=== PATIENT | male | born 1950 | race Caucasian/White ===

== ENCOUNTER 2017-08-21 17:46 | Inpatient (IN) | payer MEDICARE, OTHER ==
[~2017-08-21] VITALS: Ht 177.8 cm; Wt 79.5 kg
[~2017-08-21 17:46] MED LIST: ALBU18HF2 IH; ALBU2.5V7 NEB; ASPI-1265 PO; BENZ-38 PO; BUDE10.2 INH; CHOL10002 PO; FENO134C9; FOLI-43 PO; IPRA3AMP9 NEB; LEVO750T46 PO; LOSA25TA96 PO; METO37.5 PO; MULT-570 PO; NOR5T PO; NYST15CR30 TP; OMEP10CA4 PO; PRED10TA23 PO; SIMV10TA2 PO; UBIQ100C3 PO
[2017-08-21 18:31] LABS: BASOPHILS % (AUTO) 0.3 % (0-1); EOSINOPHILS # (AUTO) 0.2 X10'3 (0-0.9); HEMATOCRIT 46.9 % (42.0-52.0); HEMOGLOBIN 16.1 g/dl (14.0-17.9); LYMPHOCYTES # (AUTO) 1.1 X10'3 (1.1-4.8); LYMPHOCYTES % (AUTO) 18.6 % (21-51); MEAN CORPUSCULAR HEMOGLOBIN 32.5 PG (27.0-31.0); MEAN CORPUSCULAR HGB CONC 34.3 % (33.0-36.5); MEAN CORPUSCULAR VOLUME 94.6 FL (78-98); MEAN PLATELET VOLUME 8.3 FL (7.4-10.4); MONOCYTES # (AUTO) 0.6 X10'3 (0-0.9); MONOCYTES % (AUTO) 9.7 % (2-12); NEUTROPHILS % (AUTO) 68.4 % (42-75); PLATELET COUNT 242 X10'3 (140-440); RED BLOOD COUNT 4.95 X10'6 (4.70-6.10); RED CELL DISTRIBUTION WIDTH 14.2 % (11.5-14.5); WHITE BLOOD COUNT 5.8 X10'3 (4.5-11.0)
[2017-08-21] MEDS ORDERED: iohexol 350MG/ML 100ml bottle IV ONE (18:36)
[2017-08-21 18:38] LABS: INR 1.1 INR; PARTIAL THROMBOPLASTIN TIME 29 SECONDS (22-32); PROTHROMBIN TIME 10.9 SECONDS (9.0-12.0)
[2017-08-21 18:40] LABS: ALANINE AMINOTRANSFERASE 23 U/L (12-78); ALBUMIN 3.5 G/DL (3.4-5.0); ALBUMIN/GLOBULIN RATIO 1.1 (1.1-1.5); ALKALINE PHOSPHATASE 78 IU/L (46-116); ANION GAP 8 (8-16); ASPARTATE AMINO TRANSFERASE 28 U/L (10-37); BLOOD UREA NITROGEN 10 MG/DL (7-18); BUN/CREATININE RATIO 6.9 (5.4-32.0); CHLORIDE 105 MMOL/L (99-107); CREATININE 1.44 MG/DL (0.60-1.10); GLUCOSE 109 MG/DL (70-104); POTASSIUM 3.6 MMOL/L (3.5-5.1); SODIUM 141 MMOL/L (135-145); TOTAL CARBON DIOXIDE 28.5 MMOL/L (24-32); TOTAL PROTEIN 6.8 G/DL (6.4-8.2); eGFR 49 ML/MIN
[2017-08-21] MEDS ORDERED: HYDROcodone/acetaminophen 5mg/325mg tablet PO ONE (19:20)
[2017-08-21] MEDS ORDERED: mag hydrox/Alum hydrox/simeth 30ml oral suspension PO ONE (19:20)
[2017-08-21] MEDS ORDERED: ondansetron/PF 4mg/2ml inj IV PRN (21:50)
[2017-08-21] MEDS ORDERED: acetaminophen 325mg tablet PO PRN ×3 (21:50→21:55)
[2017-08-21] MEDS ORDERED: magnesium hydroxide 30ml (MOM) UD suspension PO PRN ×3 (21:50→21:55)
[2017-08-21] MEDS ORDERED: albuterol 2.5 MG/3 ML nebule NEB PRN (21:50)
[2017-08-21] MEDS ORDERED: benzonatate 100mg capsule PO PRN (21:50)
[2017-08-21] MEDS ORDERED: mag hydrox/Alum hydrox/simeth 30ml oral suspension PO PRN ×3 (21:50→21:55)
[2017-08-21] MEDS ORDERED: morphine 2 MG/ML inj. syringe IV PRN (21:55)
[2017-08-21] MEDS: normal saline 1000ml 1,000 ML IV SCH (22:21)
[2017-08-21 22:53] LABS: CLARITY,URINE CLEAR (Clear); COLOR,URINE YELLOW (Yellow); GLUCOSE, URINE NEGATIVE (Neg); KETONES,URINE NEGATIVE (Neg); LEUKOCYTE ESTERASE ,URINE NEGATIVE (Neg); NITRITES, URINE NEGATIVE (Neg); OCCULT BLOOD,URINE NEGATIVE (Neg); PH,URINE 7.5 (4.8-8.0); PROTEIN,URINE NEGATIVE (Neg)
[2017-08-21 22:54] LABS: UA COLLECTION TYPE VOIDED; URINE AMPHETAMINE SCREEN NEGATIVE (Neg); URINE BARBITUATE SCREEN NEGATIVE (Neg); URINE BENZODIAZEPINES SCREEN NEGATIVE (Neg); URINE CANNABINOID SCREEN NEGATIVE (Neg); URINE COCAINE SCREEN NEGATIVE (Neg); URINE METHADONE SCREEN NEGATIVE (Neg); URINE OPIATE SCREEN NEGATIVE (Neg); URINE PHENCYCLIDINE SCREEN NEGATIVE (Neg)
[2017-08-21 23:30] VITALS: BP 162/61
[2017-08-22 07:18] VITALS: BP 140/62
[2017-08-22] MEDS: metoprolol tartrate 25mg tablet PO SCH ×2 (08:00→19:55)
[2017-08-22] MEDS: pantoprazole 40mg Tablet.DR PO SCH (08:05)
[2017-08-22] MEDS: normal saline 1000ml 1,000 ML IV SCH ×3 (08:05→19:05)
[2017-08-22] MEDS: atorvastatin 10mg tablet PO SCH (08:06)
[2017-08-22] MEDS: amLODIPine 5mg tablet PO SCH (08:06)
[2017-08-22] MEDS: ipratropium/albuterol 3ml nebule NEB SCH ×4 (08:38→20:22)
[2017-08-22] MEDS: budesonide 0.5mg/2ml UD nebule IH SCH ×2 (08:38→20:22)
[2017-08-22] MEDS ORDERED: BUDESONIDE INH SCH (09:00)
[2017-08-22] MEDS ORDERED: [UNRECOGNIZED DRUG - OTHER] INH SCH (09:00)
[2017-08-22] MEDS ORDERED: FORMOTEROL FUMARATE INH SCH (09:00)
[2017-08-22] MEDS ORDERED: albuterol 2.5 MG/3 ML nebule NEB PRN (09:00)
[2017-08-22 11:30] VITALS: BP 132/57
[2017-08-22 19:00] VITALS: BP 138/55
[2017-08-22] MEDS ORDERED: aspirin 81mg tab.chew PO SCH (21:00)
[2017-08-22] MEDS ORDERED: losartan 25mg tablet PO SCH (21:00)
[2017-08-23] VITALS: BP 116/61
[2017-08-23] MEDS: normal saline 1000ml 1,000 ML IV SCH (05:37)
[2017-08-23] MEDS: ipratropium/albuterol 3ml nebule NEB SCH ×2 (07:00→10:52)
[2017-08-23 07:16] VITALS: BP 139/68
[2017-08-23] MEDS ORDERED: sincalide inj 1.6 MCG in normal saline 50ml IV soln 50 ML IV ONE (08:00)
[2017-08-23] MEDS: budesonide 0.5mg/2ml UD nebule IH SCH (09:00)
[2017-08-23] MEDS: atorvastatin 10mg tablet PO SCH (09:23)
[2017-08-23] MEDS: pantoprazole 40mg Tablet.DR PO SCH (09:23)
[2017-08-23] MEDS: amLODIPine 5mg tablet PO SCH (09:24)
[2017-08-23] MEDS: metoprolol tartrate 25mg tablet PO SCH (09:24)
[2017-08-23 11:00] VITALS: BP 127/59
== END 2017-08-23 13:20 | disposition home or self-care (01) | DRG 445 ==
LOC: ER 17:46 → ED HOLD 21:47 → SUR 3N 23:26
PROVIDERS: ADMIT Family Medicine; ATTEND Internal Medicine
PROC: B32T1ZZ Computerized Tomography (CT Scan) of Left Pulmonary Artery using Low Osmolar Contrast (ICD-10-PCS; principal; 2017-08-21)
PROC: B3201ZZ Computerized Tomography (CT Scan) of Thoracic Aorta using Low Osmolar Contrast (ICD-10-PCS; 2017-08-21)
PROC: B32S1ZZ Computerized Tomography (CT Scan) of Right Pulmonary Artery using Low Osmolar Contrast (ICD-10-PCS; 2017-08-21)
PROC: CF141ZZ Planar Nuclear Medicine Imaging of Gallbladder using Technetium 99m (Tc-99m) (ICD-10-PCS; 2017-08-23)
DX: K80.71 Calculus of gallbladder and bile duct without cholecystitis with obstruction (principal); N17.9 Acute kidney failure, unspecified; M48.54XA Collapsed vertebra, not elsewhere classified, thoracic region, initial encounter for fracture; R91.1 Solitary pulmonary nodule; I50.9 Heart failure, unspecified; I11.0 Hypertensive heart disease with heart failure; I71.4 Abdominal aortic aneurysm, without rupture; E78.5 Hyperlipidemia, unspecified; F32.9 Major depressive disorder, single episode, unspecified; K21.0 Gastro-esophageal reflux disease with esophagitis; I71.2 Thoracic aortic aneurysm, without rupture; J44.9 Chronic obstructive pulmonary disease, unspecified; Z79.82 Long term (current) use of aspirin; Z79.899 Other long term (current) drug therapy; Z87.01 Personal history of pneumonia (recurrent); Z82.49 Family history of ischemic heart disease and other diseases of the circulatory system
CPT/HCPCS: 36415; 71045; 71275; 74181; 76700; 78227; 80053; 80305; 81003; 83605; 83690; 83735; 84145; 84484; 85025; 85610; 85730; 87070; 94640; 94760; A9537; J2270; J2805; J7030; J7040; J7626; Q9967

== ENCOUNTER 2018-03-18 10:01 | Observation (INO) | payer MEDICARE, OTHER ==
[~2018-03-18] VITALS: Ht 177.8 cm; Wt 79.0 kg
[~2018-03-18 10:01] MED LIST changes: -BENZ-38 PO; +HYDR-3965 PO; -LEVO750T46 PO; -METO37.5 PO; +ONDA8TAB6 PO; -PRED10TA23 PO
[2018-03-18 10:51] LABS: BASOPHILS # (AUTO) 0.1 X10'3 (0-0.2); EOSINOPHILS # (AUTO) 0.2 X10'3 (0-0.9); EOSINOPHILS % (AUTO) 2.3 % (0-6); HEMATOCRIT 49.5 % (42.0-52.0); LYMPHOCYTES # (AUTO) 0.6 X10'3 (1.1-4.8); LYMPHOCYTES % (AUTO) 5.8 % (21-51); MEAN CORPUSCULAR HEMOGLOBIN 31.6 PG (27.0-31.0); MEAN CORPUSCULAR HGB CONC 32.2 % (33.0-36.5); MEAN CORPUSCULAR VOLUME 98.1 FL (78-98); MEAN PLATELET VOLUME 9.2 FL (7.4-10.4); MONOCYTES # (AUTO) 0.7 X10'3 (0-0.9); MONOCYTES % (AUTO) 6.6 % (2-12); NEUTROPHILS # (AUTO) 8.6 X10'3 (1.8-7.7); NEUTROPHILS % (AUTO) 84.3 % (42-75); PLATELET COUNT 200 X10'3 (140-440); RED BLOOD COUNT 5.05 X10'6 (4.70-6.10); RED CELL DISTRIBUTION WIDTH 13.5 % (11.5-14.5); WHITE BLOOD COUNT 10.2 X10'3 (4.5-11.0)
[2018-03-18 11:07] LABS: ALANINE AMINOTRANSFERASE 26 U/L (12-78); ALBUMIN 3.4 G/DL (3.4-5.0); ALBUMIN/GLOBULIN RATIO 0.9 (1.1-1.5); ALKALINE PHOSPHATASE 52 IU/L (46-116); ANION GAP 11 (8-16); ASPARTATE AMINO TRANSFERASE 31 U/L (10-37); BILIRUBIN,TOTAL 1.2 MG/DL (0.1-1.0); BLOOD UREA NITROGEN 33 MG/DL (7-18); BUN/CREATININE RATIO 22.6 (5.4-32.0); CALCIUM 8.8 MG/DL (8.5-10.1); CHLORIDE 101 MMOL/L (99-107); CREATININE 1.46 MG/DL (0.60-1.10); GLUCOSE 101 MG/DL (70-104); SODIUM 138 MMOL/L (135-145); TOTAL CARBON DIOXIDE 26.2 MMOL/L (24-32); eGFR 48 ML/MIN
[2018-03-18 11:08] LABS: POTASSIUM 3.7 MMOL/L (3.5-5.1)
[2018-03-18 12:20] LABS: D-DIMER 4.35 MG/L FEU (0-0.50); INR 1.2 INR; PARTIAL THROMBOPLASTIN TIME 32 SECONDS (22-32); PROTHROMBIN TIME 11.7 SECONDS (9.0-12.0)
[2018-03-18] MEDS ORDERED: iohexol 350MG/ML 100ml bottle IV ONE (12:27)
--- NOTE | 2018-03-18 13:04 | NUR ---
Note aileen in EDM - 03/18/18 at 1309 by LINDSEY SEVERAL ATTEMPTS FOR LAB DRAWS HAVE BEEN ATTEMPTED. PTS IV PATENT AND FLUID ARE INFUSING BUT UNABLE TO DRAW BLOOD FROM LINE. NEW DIRECTOR OF PARTNER MARKETING AT [facility] ATTEMPTING AT PRESENT TIME AND MD KAISER AWARE OF LAB STATUS.
[2018-03-18] MEDS ORDERED: potassium Cl 40MEQ/NS 500ml 500 ML IV PRN ×2 (13:55)
[2018-03-18] MEDS ORDERED: ondansetron/PF 4mg/2ml inj IV PRN (13:55)
[2018-03-18] MEDS ORDERED: magnesium Cl slow-release 64mg tablet PO PRN (13:55)
[2018-03-18] MEDS ORDERED: potassium Cl 20 mEq SR tablet PO PRN ×2 (13:55)
[2018-03-18] MEDS ORDERED: magnesium 4gm in 100ml NS 100 ML IV PRN (13:55)
[2018-03-18] MEDS ORDERED: ipratropium/albuterol 3ml nebule NEB ONE (14:00)
[2018-03-18] MEDS: normal saline 1000ml 1,000 ML IV SCH (14:09)
[2018-03-18 14:19] LABS: LIPASE 628 U/L (73-393)
[2018-03-18] MEDS ORDERED: carvedilol PO (14:31)
[2018-03-18 15:05] LABS: ABG BASE EXCESS 2.8 mmol/L (-2.0-3.0); ABG HCO3 26.5 mmol/L (22.0-26.0); ABG OXYGEN SATURATION 93.9 % (95-98); ABG PCO2 (T) 37.8 mmHg (35.0-48.0); ABG PH (T) 7.464 (7.350-7.450); ABG PO2 (T) 61.5 mmHg (83-108); ALLEN'S TEST Positive; FCOHb 1.4 % (0.5-1.5); FLOW 2 L/min; FMetHb 0.2 % (0.3-1.12); FO2Hb 92.4 % (94-100); TOTAL HEMOGLOBIN 15.2 G/dl (14.0-18.0)
[2018-03-18] MEDS ORDERED: ipratropium 0.5 MG/2.5ML nebule IH SCH (16:35)
[2018-03-18] MEDS: ipratropium/albuterol 3ml nebule NEB SCH ×3 (16:35→23:47)
[2018-03-18 18:00] VITALS: BP 120/60
--- NOTE | 2018-03-18 18:45 | NUR ---
Patient report given to Maureen Butt RN
--- NOTE | 2018-03-18 18:59 | NUR ---
promotional table spacer PAGER ID: [phone] MESSAGE: [id number] JACKELIN JENNINGS NEEDS MED REC DONE BY YOU. THANKS MARCELINO [phone]
--- NOTE | 2018-03-18 19:00 | NUR ---
Patient in room ORTHO 4013b. I have received report from NEHEMIAS Kc and had the opportunity to ask questions and assume patient care.
--- NOTE | 2018-03-18 19:57 | NUR ---
PAGER ID: [phone] MESSAGE: [id number] JACKELIN JENNINGS HERE FOR SOB BUT HERE 2 DAYS AGO FOR PANCREATITIS AND HE HAS PAIN STILL IN HIS BELLY. HE WAS DISCHARGED HOME WITH [employer]. CAN I GET THAT ORDERED. CALL MARCELINO AT [phone]
[2018-03-18] MEDS ORDERED: CARVEDILOL 3.125 MG PO SCH (20:00)
[2018-03-18] MEDS: methylPREDNISolone sod succ/PF 40mg inj. IV SCH (20:10)
[2018-03-18] MEDS: heparin, porcine 5000 units/ml vial SQ SCH (20:11)
[2018-03-18] MEDS: carVEDilol 3.125mg tablet PO SCH (20:11)
[2018-03-18] MEDS ORDERED: HYDROcodone/acetaminophen 5mg/325mg tablet PO PRN (20:20)
[2018-03-18] MEDS ORDERED: folic acid 1mg tablet PO SCH (21:00)
[2018-03-18] MEDS ORDERED: losartan 50mg tablet PO SCH (21:00)
[2018-03-18] MEDS ORDERED: aspirin 81mg tab.chew PO SCH (21:00)
[2018-03-18 22:00] VITALS: BP 124/62
[2018-03-19] MEDS: normal saline 1000ml 1,000 ML IV SCH ×2 (00:19→09:16)
[2018-03-19] MEDS: ipratropium/albuterol 3ml nebule NEB SCH ×3 (03:28→11:31)
[2018-03-19 06:00] VITALS: BP 127/68
--- NOTE | 2018-03-19 06:11 | NUR ---
RECEIVED REPORT FROM MARCELINO RN
--- NOTE | 2018-03-19 06:29 | NUR ---
Problems reprioritized. Patient report given, questions answered & plan of care reviewed with NEHEMIAS Quintana. Addendum: 03/19/18 at 0631 by Maureen Barger RN Gave report to NEHEMIAS Benoit.
[2018-03-19] MEDS: carVEDilol 3.125mg tablet PO SCH (07:14)
[2018-03-19] MEDS: methylPREDNISolone sod succ/PF 40mg inj. IV SCH (07:16)
[2018-03-19] MEDS: heparin, porcine 5000 units/ml vial SQ SCH (07:18)
[2018-03-19] MEDS ORDERED: pantoprazole 40mg Tablet.DR PO SCH (07:30)
[2018-03-19] MEDS ORDERED: K and/or MAG REPLACEMENT MC SCH (08:00)
[2018-03-19] MEDS ORDERED: amLODIPine 5mg tablet PO SCH (08:00)
[2018-03-19 08:23] LABS: BASOPHILS % (AUTO) 0.1 % (0-1); EOSINOPHILS % (AUTO) 0 % (0-6); HEMATOCRIT 41.7 % (42.0-52.0); HEMOGLOBIN 13.7 g/dl (14.0-17.9); LYMPHOCYTES # (AUTO) 0.5 X10'3 (1.1-4.8); LYMPHOCYTES % (AUTO) 5.9 % (21-51); MEAN CORPUSCULAR HEMOGLOBIN 31.9 PG (27.0-31.0); MEAN CORPUSCULAR HGB CONC 32.8 % (33.0-36.5); MEAN CORPUSCULAR VOLUME 97.4 FL (78-98); MEAN PLATELET VOLUME 9.2 FL (7.4-10.4); MONOCYTES # (AUTO) 0.3 X10'3 (0-0.9); MONOCYTES % (AUTO) 3.5 % (2-12); NEUTROPHILS # (AUTO) 7.2 X10'3 (1.8-7.7); NEUTROPHILS % (AUTO) 90.5 % (42-75); PLATELET COUNT 187 X10'3 (140-440); RED BLOOD COUNT 4.28 X10'6 (4.70-6.10); RED CELL DISTRIBUTION WIDTH 14.3 % (11.5-14.5); WHITE BLOOD COUNT 7.9 X10'3 (4.5-11.0)
[2018-03-19 08:37] LABS: ALBUMIN 2.7 G/DL (3.4-5.0); ANION GAP 11 (8-16); BLOOD UREA NITROGEN 25 MG/DL (7-18); BUN/CREATININE RATIO 23.6 (5.4-32.0); CALCIUM 8.5 MG/DL (8.5-10.1); CHLORIDE 102 MMOL/L (99-107); CREATININE 1.06 MG/DL (0.60-1.10); GLUCOSE 142 MG/DL (70-104); LIPASE 117 U/L (73-393); POTASSIUM 3.7 MMOL/L (3.5-5.1); SODIUM 137 MMOL/L (135-145); TOTAL CARBON DIOXIDE 24.2 MMOL/L (24-32); eGFR 70 ML/MIN
[2018-03-19 10:00] VITALS: BP 125/62
[2018-03-19] MEDS ORDERED: OMEP20TA23 PO (12:49)
[2018-03-19] MEDS ORDERED: PRED10TA23 PO (12:49)
[2018-03-19] MEDS ORDERED: LEVO500T2 PO (12:49)
--- NOTE | 2018-03-19 13:38 | NUR ---
PT D/C WITH INSTRUCTIONS, UNDERSTANDING OF INSTRUCTIONS AND WITH ALL BELONGINGS IN WHEELCHAIR ACCOMPANIED BY TO PRIVATE VEHICLE TO GO HOME AND F/U W/PCP
== END 2018-03-19 13:34 | disposition home or self-care (01) ==
LOC: ER 10:01 → ED HOLD 14:17 → ORTHO 4S 16:48
PROVIDERS: ADMIT Internal Medicine; ATTEND Internal Medicine
DX: J44.1 Chronic obstructive pulmonary disease with (acute) exacerbation (principal); K85.90 Acute pancreatitis without necrosis or infection, unspecified; I11.0 Hypertensive heart disease with heart failure; I50.9 Heart failure, unspecified; J40 Bronchitis, not specified as acute or chronic; J18.9 Pneumonia, unspecified organism; F32.9 Major depressive disorder, single episode, unspecified; K46.9 Unspecified abdominal hernia without obstruction or gangrene; E78.5 Hyperlipidemia, unspecified; Z87.891 Personal history of nicotine dependence; Z23 Encounter for immunization; Z09 Encounter for follow-up examination after completed treatment for conditions other than malignant neoplasm
CPT/HCPCS: 36415; 36600; 71045; 71275; 80048; 80053; 82803; 83690; 83735; 83880; 84484; 85018; 85025; 85379; 85610; 85730; 87070; 93005; 93970; 94640; 94760; 96372; 96374; 96376; 99285; G0378; J1644; J2920; J7030; Q9967

== ENCOUNTER 2019-01-13 15:53 | Observation (INO) | payer MEDICARE ==
[~2019-01-13] VITALS: Ht 177.8 cm; Wt 78.3 kg
[~2019-01-13 15:53] MED LIST changes: -ALBU2.5V7 NEB; -FENO134C9; +FENO134C9 PO; -HYDR-3965 PO; -IPRA3AMP9 NEB; -NYST15CR30 TP; -OMEP10CA4 PO; +OMEP20TA23 PO; -ONDA8TAB6 PO; -SIMV10TA2 PO; -UBIQ100C3 PO; +carvedilol PO
[2019-01-13 16:38] LABS: BASOPHILS # (AUTO) 0.1 X10'3 (0-0.2); EOSINOPHILS # (AUTO) 0.2 X10'3 (0-0.9); EOSINOPHILS % (AUTO) 3.3 % (0-6); HEMATOCRIT 42.1 % (42.0-52.0); HEMOGLOBIN 14.3 g/dl (14.0-17.9); LYMPHOCYTES # (AUTO) 1.1 X10'3 (1.1-4.8); LYMPHOCYTES % (AUTO) 15.9 % (21-51); MEAN CORPUSCULAR HEMOGLOBIN 29.2 PG (27.0-31.0); MEAN CORPUSCULAR HGB CONC 33.9 g/dL (33.0-36.5); MEAN CORPUSCULAR VOLUME 86.3 FL (78-98); MEAN PLATELET VOLUME 7.8 FL (7.4-10.4); MONOCYTES # (AUTO) 0.7 X10'3 (0-0.9); MONOCYTES % (AUTO) 10.2 % (2-12); NEUTROPHILS # (AUTO) 4.9 X10'3 (1.8-7.7); NEUTROPHILS % (AUTO) 69.6 % (42-75); PLATELET COUNT 333 X10'3 (140-440); RED BLOOD COUNT 4.88 X10'6 (4.70-6.10); RED CELL DISTRIBUTION WIDTH 14.3 % (11.5-14.5); WHITE BLOOD COUNT 7.1 X10'3 (4.5-11.0)
[2019-01-13 16:54] LABS: PARTIAL THROMBOPLASTIN TIME 29 SECONDS (22-32)
[2019-01-13 16:55] LABS: ALANINE AMINOTRANSFERASE 24 U/L (12-78); ALBUMIN 3.7 G/DL (3.4-5.0); ALBUMIN/GLOBULIN RATIO 0.9 (1.1-1.5); ALKALINE PHOSPHATASE 56 IU/L (46-116); ANION GAP 9 (8-16); ASPARTATE AMINO TRANSFERASE 26 U/L (10-37); BILIRUBIN,TOTAL 0.7 MG/DL (0.1-1.0); BLOOD UREA NITROGEN 16 MG/DL (7-18); BUN/CREATININE RATIO 12.4 (5.4-32.0); CALCIUM 9.4 MG/DL (8.5-10.1); CHLORIDE 103 MMOL/L (99-107); CREATININE 1.29 MG/DL (0.60-1.10); GLUCOSE 93 MG/DL (70-104); POTASSIUM 3.8 MMOL/L (3.5-5.1); SODIUM 139 MMOL/L (135-145); TOTAL CARBON DIOXIDE 27.3 MMOL/L (24-32); TOTAL PROTEIN 7.7 G/DL (6.4-8.2); eGFR 56 ML/MIN
[2019-01-13 16:59] LABS: TROPONIN I 0.26 NG/ML (0.0-0.05)
[2019-01-13] MEDS ORDERED: enoxaparin 100mg/ml syringe SUBCUT ONE (17:30)
[2019-01-13] MEDS ORDERED: HYDROcodone/acetaminophen 5mg/325mg tablet PO PRN (17:40)
[2019-01-13] MEDS ORDERED: acetaminophen 325mg tablet PO PRN ×2 (17:40)
[2019-01-13] MEDS ORDERED: magnesium Cl slow-release 64mg tablet PO PRN (17:40)
[2019-01-13] MEDS ORDERED: magnesium hydroxide 30ml (MOM) UD suspension PO PRN (17:40)
[2019-01-13] MEDS ORDERED: potassium CL 10mEq/100ml bag 100 ML IV PRN ×2 (17:40)
[2019-01-13] MEDS ORDERED: potassium Cl 20 mEq SR tablet PO PRN ×2 (17:40)
[2019-01-13] MEDS ORDERED: magnesium 2GM in 50ml NS 50 ML IV PRN (17:40)
[2019-01-13] MEDS ORDERED: ondansetron/PF 4mg/2ml inj IV PRN (17:40)
[2019-01-13] MEDS ORDERED: mag hydrox/Alum hydrox/simeth 30ml oral suspension PO PRN (17:40)
[2019-01-13] MEDS ORDERED: magnesium 4gm in 100ml NS 100 ML IV PRN (17:40)
[2019-01-13] MEDS ORDERED: CARV3.122 PO (17:52)
[2019-01-13] MEDS ORDERED: SIMV10TA98 PO (17:52)
[2019-01-13] MEDS ORDERED: FURO-149 PO (17:54)
[2019-01-13] MEDS ORDERED: OMEP40CA13 PO (17:55)
[2019-01-13] MEDS ORDERED: UBID200C37 PO (18:02)
[2019-01-13] MEDS ORDERED: CANNABIDIOL PO (18:05)
[2019-01-13] MEDS ORDERED: pneumococcal 23-VAL P-sac vacc 25 mcg/0.5ml vial IMVAC ONE (18:40)
[2019-01-13] MEDS ORDERED: furosemide 40mg tablet PO PRN (19:20)
--- NOTE | 2019-01-13 19:35 | NUR ---
Patient in room ORTHO 4015. I have received report from NEHEMIAS Weiss in ER and had the opportunity to ask questions
[2019-01-13 19:38] VITALS: BP 135/70
[2019-01-13] MEDS: carVEDilol 3.125mg tablet PO SCH (20:17)
[2019-01-13] MEDS ORDERED: folic acid 1mg tablet PO SCH (21:00)
[2019-01-13] MEDS ORDERED: losartan 25mg tablet PO SCH (21:00)
[2019-01-13] MEDS ORDERED: aspirin 81mg tab.chew PO SCH (21:00)
[2019-01-13 22:00] VITALS: BP 110/59
[2019-01-13 23:20] VITALS: BP 120/66
--- NOTE | 2019-01-14 01:28 | NUR ---
reviewed and agree with SRN assessment.
[2019-01-14 02:00] VITALS: BP 119/56
[2019-01-14 04:15] VITALS: BP 119/56
[2019-01-14 05:13] LABS: BASOPHILS % (AUTO) 0.5 % (0-1); EOSINOPHILS # (AUTO) 0.3 X10'3 (0-0.9); EOSINOPHILS % (AUTO) 4.4 % (0-6); HEMOGLOBIN 13.5 g/dl (14.0-17.9); LYMPHOCYTES # (AUTO) 1.4 X10'3 (1.1-4.8); LYMPHOCYTES % (AUTO) 21.7 % (21-51); MEAN CORPUSCULAR HEMOGLOBIN 29.3 PG (27.0-31.0); MEAN CORPUSCULAR HGB CONC 33.7 g/dL (33.0-36.5); MEAN CORPUSCULAR VOLUME 86.8 FL (78-98); MEAN PLATELET VOLUME 8.3 FL (7.4-10.4); MONOCYTES # (AUTO) 0.7 X10'3 (0-0.9); MONOCYTES % (AUTO) 11.1 % (2-12); NEUTROPHILS # (AUTO) 4.1 X10'3 (1.8-7.7); NEUTROPHILS % (AUTO) 62.3 % (42-75); PLATELET COUNT 308 X10'3 (140-440); RED CELL DISTRIBUTION WIDTH 14.4 % (11.5-14.5); WHITE BLOOD COUNT 6.6 X10'3 (4.5-11.0)
[2019-01-14 05:46] LABS: ALBUMIN 3.3 G/DL (3.4-5.0); ANION GAP 6 (8-16); BLOOD UREA NITROGEN 17 MG/DL (7-18); BUN/CREATININE RATIO 12.7 (5.4-32.0); CALCIUM 9.8 MG/DL (8.5-10.1); CHLORIDE 103 MMOL/L (99-107); CHOL/HDL RATIO 4.1 (0.00-4.99); CHOLESTEROL 144 MG/DL (0-200); CREATININE 1.34 MG/DL (0.60-1.10); GLUCOSE 92 MG/DL (70-104); HDL CHOLESTEROL 35 MG/DL (35-60); LDL CHOLESTEROL 92 MG/DL (50-100); MAGNESIUM 1.8 MG/DL (1.5-2.4); POTASSIUM 3.7 MMOL/L (3.5-5.1); SODIUM 137 MMOL/L (135-145); TOTAL CARBON DIOXIDE 27.8 MMOL/L (24-32); TRIGLYCERIDES 155 MG/DL (20-135); TROPONIN I 0.24 NG/ML (0.0-0.05); eGFR 53 ML/MIN
--- NOTE | 2019-01-14 06:27 | NUR ---
Problems reprioritized. Patient report given, questions answered & plan of care reviewed with NEHEMIAS Quintana.
[2019-01-14] MEDS ORDERED: pantoprazole 40mg Tablet.DR PO SCH (07:30)
[2019-01-14 08:00] VITALS: BP 134/63
[2019-01-14] MEDS ORDERED: enoxaparin 40mg/0.4ml syringe SQ SCH (08:00)
[2019-01-14] MEDS ORDERED: amLODIPine 5mg tablet PO SCH (08:00)
[2019-01-14] MEDS ORDERED: K and/or MAG REPLACEMENT MC SCH (08:00)
[2019-01-14] MEDS ORDERED: enoxaparin 80mg/0.8ml syringe SUBCUT SCH (08:00)
[2019-01-14] MEDS ORDERED: atorvastatin 20mg tablet PO SCH (08:00)
[2019-01-14] MEDS: carVEDilol 3.125mg tablet PO SCH (09:01)
[2019-01-14 12:30] VITALS: BP 119/57
--- NOTE | 2019-01-14 13:12 | NUR ---
Pt states that the L side of his face still feels "fuzzy" and also reports decreased sensation in L foot. MD Mcginnis aware. MD advised no further treatment necessary here, and pt will f/u out pt with erma cloth examiner hand re SOB and elevated troponins. He offered to increase the dose of asa when asked about further evaluation of the decreased sensation of L face and foot. Pt takes asa and lipitor at home.
[2019-01-14] MEDS ORDERED: CLOP75TA15 PO (13:30)
[2019-01-14 16:06] VITALS: BP 126/84
== END 2019-01-14 17:06 | disposition home or self-care (01) ==
LOC: ER 15:54 → ED HOLD 17:36 → ORTHO 4S 19:15
PROVIDERS: ADMIT Hospitalist; ATTEND Hospitalist
DX: R20.0 Anesthesia of skin (principal); R20.2 Paresthesia of skin; R51 Headache; I21.4 Non-ST elevation (NSTEMI) myocardial infarction; M79.605 Pain in left leg; M79.7 Fibromyalgia; R79.89 Other specified abnormal findings of blood chemistry; E78.5 Hyperlipidemia, unspecified; I35.1 Nonrheumatic aortic (valve) insufficiency; I11.0 Hypertensive heart disease with heart failure; I50.9 Heart failure, unspecified; I25.10 Atherosclerotic heart disease of native coronary artery without angina pectoris; J44.9 Chronic obstructive pulmonary disease, unspecified; F32.9 Major depressive disorder, single episode, unspecified; I71.4 Abdominal aortic aneurysm, without rupture; Z23 Encounter for immunization; Z87.891 Personal history of nicotine dependence; Z95.1 Presence of aortocoronary bypass graft; Z79.82 Long term (current) use of aspirin; Z79.51 Long term (current) use of inhaled steroids; Z79.899 Other long term (current) drug therapy
CPT/HCPCS: 36415; 70450; 71045; 80048; 80053; 80061; 82948; 83735; 84484; 85025; 85610; 85730; 87081; 90732; 93005; 93306; 93880; 96372; 97116; 97161; 97530; 99284; G0008; G0378; J1650

== ENCOUNTER 2019-04-14 05:34 | Day surgery (SDC) | payer MEDICARE ==
[2019-04-14] VITALS (9 sets, daily range): BP systolic 119–137; BP diastolic 54–68
[~2019-04-14] VITALS: Ht 177.8 cm; Wt 78.1 kg
[~2019-04-14 05:34] MED LIST changes: -ASPI-1265 PO; +CANNABIDIOL PO; +CARV3.122 PO; -CHOL10002 PO; +CLOP75TA15 PO; +FURO-149 PO; -LOSA25TA96 PO; -OMEP20TA23 PO; +OMEP40CA13 PO; +SIMV10TA98 PO; +UBID200C37 PO; -carvedilol PO
[2019-04-14] MEDS ORDERED: LORazepam 0.5 MG tablet PO PRN (06:00)
[2019-04-14] MEDS ORDERED: normal saline 1,000 ML IV SCH (06:00)
[2019-04-14] MEDS ORDERED: diphenhydrAMINE 25mg capsule PO PRN (06:00)
[2019-04-14] MEDS ORDERED: midazolam 2 mg/2 ml injection ONE (06:49)
[2019-04-14] MEDS ORDERED: fentaNYL/PF 50MCG/1 ML 2ML syringe ONE (06:50)
[2019-04-14] MEDS ORDERED: LIDOcaine 1% (10mg/ml)w/preservative injection 20ml MDV ONE (06:50)
[2019-04-14] MEDS ORDERED: iohexol 350MG/ML 100ml bottle IV ONE (06:50)
[2019-04-14] MEDS ORDERED: LOSA25TA96 PO (06:59)
[2019-04-14] MEDS ORDERED: CLOP75TA15 PO ×2 (06:59→07:00)
[2019-04-14] MEDS ORDERED: iohexol 350 MG/ML 50ML vial IV ONE (07:31)
[2019-04-14] MEDS ORDERED: HYDROcodone/acetaminophen 5mg/325mg tablet PO PRN (08:20)
[2019-04-14] MEDS ORDERED: ondansetron/PF 4mg/2ml inj IV PRN (08:20)
[2019-04-14] MEDS ORDERED: acetaminophen 325mg tablet PO PRN (08:25)
[2019-04-14] MEDS ORDERED: HYDROcodone/acetaminophen 10/325mg tab PO PRN (08:25)
[2019-04-14] MEDS ORDERED: OXAZEpam 15mg capsule PO PRN (08:25)
[2019-04-14] MEDS ORDERED: proCHLORperazine 10 MG/2 ml inj IV PRN (08:25)
[2019-05-11] MEDS ORDERED: FLO44IN IH (13:13)
[2019-05-11] MEDS ORDERED: ASPI-1265 PO (13:13)
== END 2019-04-14 10:50 | disposition home or self-care (01) ==
LOC: SSTAY O 05:34
PROVIDERS: ATTEND Internal Medicine Interventional Cardiology
DX: I35.1 Nonrheumatic aortic (valve) insufficiency (principal); I25.10 Atherosclerotic heart disease of native coronary artery without angina pectoris; I13.0 Hypertensive heart and chronic kidney disease with heart failure and stage 1 through stage 4 chronic kidney disease, or unspecified chronic kidney disease; I50.9 Heart failure, unspecified; J44.9 Chronic obstructive pulmonary disease, unspecified; I25.2 Old myocardial infarction; N18.9 Chronic kidney disease, unspecified; Z86.73 Personal history of transient ischemic attack (TIA), and cerebral infarction without residual deficits; Z79.899 Other long term (current) drug therapy
CPT/HCPCS: 93005; 93458; 93567; C1769; J2001; J2250; J3010; J7030; Q0163; Q9967; 93454; 99152; 99153; A4620; A6258

== ENCOUNTER 2023-01-24 21:30 | Inpatient (IN) | payer OTHER, MEDICARE ==
[~2023-01-24] VITALS: Ht 172.7 cm; Wt 65.8 kg
[~2023-01-24 21:30] MED LIST changes: -ALBU18HF2 IH; +ALBU8.5H17 IH; +AMLO5TAB16 PO; +AMYL1CAP57 PO; +APIX5TAB3 PO; +ATOR40TA72 PO; -BUDE10.2 INH; -CANNABIDIOL PO; -CARV3.122 PO; -CLOP75TA15 PO; +DIPH-629 PO; +FENO134C21 PO; -FENO134C9 PO; +FLO110IN PO; -FOLI-43 PO; +FOLI0.4T6 PO; -FURO-149 PO; +FURO40TA4 PO; +MAGN250T29 PO; +MULT-227 PO; -MULT-570 PO; -NOR5T PO; +OLME20TA23 PO; -OMEP40CA13 PO; +OMEP40CA21 PO; +POTA-205 PO; +SERT-432 PO; -SIMV10TA98 PO; +UBID200C18 PO; -UBID200C37 PO
[2023-01-24 22:57] LABS: BASOPHILS % (AUTO) 0.3 % (0-1); EOSINOPHILS % (AUTO) 0.3 % (0-6); HEMATOCRIT 47.8 % (42.0-52.0); HEMOGLOBIN 15.9 g/dl (14.0-17.9); LYMPHOCYTES # (AUTO) 0.7 X10'3 (1.1-4.8); LYMPHOCYTES % (AUTO) 6.9 % (21-51); MEAN CORPUSCULAR HGB CONC 33.2 g/dL (33.0-36.5); MEAN CORPUSCULAR VOLUME 99.4 FL (78-98); MEAN PLATELET VOLUME 9.2 FL (7.4-10.4); MONOCYTES # (AUTO) 0.6 X10'3 (0-0.9); MONOCYTES % (AUTO) 6.3 % (2-12); NEUTROPHILS # (AUTO) 8.4 X10'3 (1.8-7.7); NEUTROPHILS % (AUTO) 86.2 % (42-75); PLATELET COUNT 208 X10'3 (140-440); RED BLOOD COUNT 4.81 X10'6 (4.70-6.10); RED CELL DISTRIBUTION WIDTH 13.9 % (11.5-14.5); WHITE BLOOD COUNT 9.7 X10'3 (4.5-11.0)
[2023-01-24 23:33] LABS: APTT 28 SECONDS (22-32)
[2023-01-24 23:36] LABS: ALANINE AMINOTRANSFERASE 43 U/L (12-78); ALBUMIN 2.8 G/DL (3.4-5.0); ALBUMIN/GLOBULIN RATIO 0.9 (1.1-1.5); ALKALINE PHOSPHATASE 122 IU/L (46-116); ANION GAP 15 (8-16); ASPARTATE AMINO TRANSFERASE 82 U/L (10-37); BILIRUBIN,TOTAL 0.8 MG/DL (0.1-1.0); BLOOD UREA NITROGEN 9 MG/DL (7-18); BUN/CREATININE RATIO 9.7 (10.0-20.0); CALCIUM 8.2 MG/DL (8.5-10.1); CHLORIDE 99 MMOL/L (99-107); CREATININE 0.93 MG/DL (0.60-1.10); GLUCOSE 99 MG/DL (70-104); MAGNESIUM 1.3 MG/DL (1.5-2.4); SODIUM 136 MMOL/L (135-145); TOTAL PROTEIN 5.9 G/DL (6.4-8.2); eCRCL 70 ML/MIN; eGFR 80 ML/MIN
[2023-01-25] VITALS (9 sets, daily range): BP systolic 97–138; BP diastolic 75–81; PULSE 74–80; RESP 14–24; TEMP 97.4–98.1; O2SAT 96–98
[2023-01-25] MEDS ORDERED: dextrose 50%-water 50ml dispensing syringe IV PRN (00:20)
[2023-01-25] MEDS ORDERED: haloperidol lactate 5mg/ml inj IM PRN (00:20)
[2023-01-25] MEDS ORDERED: potassium Cl 20 mEq SR tablet PO PRN (00:20)
[2023-01-25] MEDS ORDERED: acetaminophen 325mg tablet PO PRN ×2 (00:20)
[2023-01-25] MEDS ORDERED: haloperidol 5mg tablet PO PRN (00:20)
[2023-01-25] MEDS ORDERED: LORazepam 1 MG tablet PO PRN (00:20)
[2023-01-25] MEDS ORDERED: magnesium 2GM in 50ml NS 50 ML IV PRN (00:20)
[2023-01-25] MEDS ORDERED: diphenhydrAMINE 25mg capsule PO PRN (00:20)
[2023-01-25] MEDS ORDERED: magnesium hydroxide 30ml (MOM) UD suspension PO PRN (00:20)
[2023-01-25] MEDS ORDERED: magnesium 4gm in 100ml NS 100 ML IV PRN (00:20)
[2023-01-25] MEDS ORDERED: mag hydrox/Alum hydrox/simeth 30ml oral suspension PO PRN (00:20)
[2023-01-25] MEDS ORDERED: ondansetron 4mg rapidly disintigrating tab PO PRN (00:20)
[2023-01-25] MEDS ORDERED: LORazepam 2 mg/ml vial IV PRN (00:20)
[2023-01-25] MEDS ORDERED: HYDROcodone/acetaminophen 5mg/325mg tablet PO PRN (00:20)
[2023-01-25] MEDS ORDERED: ondansetron/PF 4mg/2ml inj IV PRN (00:20)
[2023-01-25] MEDS ORDERED: potassium Cl 40MEQ/1/2NS 520ml 520 ML IV PRN (00:20)
[2023-01-25] MEDS ORDERED: morphine 2 MG/ML inj. syringe IV PRN ×2 (00:20)
[2023-01-25] MEDS ORDERED: magnesium Cl slow-release 64mg tablet PO PRN (00:20)
[2023-01-25] MEDS ORDERED: diphenhydrAMINE 50 mg/ml inj IV PRN (00:20)
[2023-01-25] MEDS ORDERED: acetaminophen 650mg rectal suppository RC PRN (00:20)
[2023-01-25] MEDS ORDERED: HYDROmorphone inj. 0.5 MG/0.5 ML DISP.SYRIN IV PRN (00:20)
[2023-01-25] MEDS ORDERED: bisacodyl 10mg suppository rectal RC PRN (00:20)
[2023-01-25 01:04] LABS: HEMOGLOBIN A1C 5.6 % (4.5-6.2)
[2023-01-25 01:10] LABS: D-DIMER 3.73 MG/L FEU (0-0.50); LIPASE 30 U/L (16-77); PHOSPHORUS 2.3 MG/DL (2.3-4.5); PRO BRAIN NATRIURETIC PEPTIDE 457 PG/ML (0-125)
[2023-01-25] MEDS: HYDROcodone/acetaminophen 10/325mg tab PO PRN ×3 (01:28→16:28)
[2023-01-25] MEDS: potassium cl 20mEq in 1/2 NS 1,000 ML IV SCH ×3 (01:29→19:56)
--- NOTE | 2023-01-25 02:33 | NUR ---
ULTRASOUND PAGED AT [phone]
[2023-01-25 03:25] LABS: MAGNESIUM 1.3 MG/DL (1.5-2.4); POTASSIUM 3.2 MMOL/L (3.5-5.1)
[2023-01-25 03:48] LABS: ETHANOL < 10 MG/DL (<10)
--- NOTE | 2023-01-25 04:30 | NUR ---
RECEIVED PT FROM ER VIA GRACIE FOLLOWING VERBAL REPORT
--- NOTE | 2023-01-25 07:42 | NUR ---
Problems reprioritized. Patient report given, questions answered & plan of care reviewed with CARLOZ.
[2023-01-25] MEDS: potassium Cl 20 mEq SR tablet PO PRN ×2 (08:41→19:52)
[2023-01-25] MEDS: docusate sod 100mg capsule PO SCH ×2 (08:42→19:52)
[2023-01-25] MEDS: K and/or MAG REPLACEMENT MC SCH ×2 (08:48→19:59)
[2023-01-25] MEDS: thiamine 100mg/ml 2ml inj. IV SCH ×3 (09:52→20:03)
[2023-01-25] MEDS: folic acid 1mg/0.2ml inj IV SCH (09:57)
[2023-01-25] MEDS ORDERED: diphenoxylate/atropine tablet (Lomotil) PO PRN (15:40)
[2023-01-25] MEDS: LIPASE/PROTEASE/AMYLASE 10,500 units CAPSULE.DR PO SCH (17:00)
[2023-01-25] MEDS: potassium chloride 10mEq ER tablet PO SCH (19:52)
[2023-01-25] MEDS: magnesium oxide 400mg tablet PO SCH (19:53)
[2023-01-25] MEDS: apixaban 5mg tablet PO SCH (19:59)
[2023-01-25] MEDS: atorvastatin 20mg tablet PO SCH (20:02)
[2023-01-25] MEDS: amLODIPine 5mg tablet PO SCH (20:03)
[2023-01-25] MEDS: budesonide 0.5mg/2ml UD nebule IH SCH (21:40)
[2023-01-26] VITALS (27 sets, daily range): BP systolic 68–145; BP diastolic 39–78; PULSE 70–88; RESP 12–23; TEMP 96.8–98.2; O2SAT 94–100
[2023-01-26] MEDS: HYDROcodone/acetaminophen 10/325mg tab PO PRN ×5 (03:03→23:48)
[2023-01-26] MEDS: potassium cl 20mEq in 1/2 NS 1,000 ML IV SCH ×3 (05:25→19:12)
--- NOTE | 2023-01-26 06:31 | NUR ---
Patient in room ORTHO 4020. I have received report from Avelina arteaga RN and had the opportunity to ask questions and assume patient care.
--- NOTE | 2023-01-26 06:50 | NUR ---
Report given to Marlyn DEL CID. Pt resting comfortably in bed. He is NPO at this time incase of cardiac clearance or surgery.
[2023-01-26] MEDS: LIPASE/PROTEASE/AMYLASE 10,500 units CAPSULE.DR PO SCH ×3 (07:00→17:00)
[2023-01-26 07:31] LABS: BASOPHILS % (AUTO) 0.7 % (0-1); EOSINOPHILS # (AUTO) 0.3 X10'3 (0-0.9); EOSINOPHILS % (AUTO) 4.2 % (0-6); HEMATOCRIT 36.5 % (42.0-52.0); HEMOGLOBIN 12.3 g/dl (14.0-17.9); LYMPHOCYTES # (AUTO) 0.9 X10'3 (1.1-4.8); MEAN CORPUSCULAR HEMOGLOBIN 33.3 PG (27.0-31.0); MEAN CORPUSCULAR HGB CONC 33.7 g/dL (33.0-36.5); MEAN CORPUSCULAR VOLUME 98.9 FL (78-98); MEAN PLATELET VOLUME 9.1 FL (7.4-10.4); MONOCYTES # (AUTO) 0.8 X10'3 (0-0.9); MONOCYTES % (AUTO) 11.5 % (2-12); NEUTROPHILS # (AUTO) 4.6 X10'3 (1.8-7.7); NEUTROPHILS % (AUTO) 69.6 % (42-75); PLATELET COUNT 160 X10'3 (140-440); RED BLOOD COUNT 3.69 X10'6 (4.70-6.10); RED CELL DISTRIBUTION WIDTH 13.3 % (11.5-14.5); WHITE BLOOD COUNT 6.6 X10'3 (4.5-11.0)
[2023-01-26] MEDS: thiamine 100mg/ml 2ml inj. IV SCH ×3 (07:52→20:33)
[2023-01-26] MEDS: folic acid 1mg/0.2ml inj IV SCH (07:53)
[2023-01-26 07:59] LABS: ALANINE AMINOTRANSFERASE 32 U/L (12-78); ALBUMIN 2.6 G/DL (3.4-5.0); ALBUMIN/GLOBULIN RATIO 0.9 (1.1-1.5); ALKALINE PHOSPHATASE 119 IU/L (46-116); ANION GAP 7 (8-16); ASPARTATE AMINO TRANSFERASE 46 U/L (10-37); BILIRUBIN,TOTAL 1.3 MG/DL (0.1-1.0); BLOOD UREA NITROGEN 13 MG/DL (7-18); BUN/CREATININE RATIO 11.6 (10.0-20.0); CHLORIDE 101 MMOL/L (99-107); CHOL/HDL RATIO 1.9 (0.00-4.99); CHOLESTEROL 120 MG/DL (0-200); CREATININE 1.12 MG/DL (0.60-1.10); GLUCOSE 92 MG/DL (70-104); HDL CHOLESTEROL 62 MG/DL (35-60); LDL CHOLESTEROL 41 MG/DL (50-100); MAGNESIUM 1.3 MG/DL (1.5-2.4); POTASSIUM 4.5 MMOL/L (3.5-5.1); SODIUM 132 MMOL/L (135-145); TOTAL CARBON DIOXIDE 24.2 MMOL/L (24-32); TOTAL PROTEIN 5.6 G/DL (6.4-8.2); TRIGLYCERIDES 149 MG/DL (20-135); eCRCL 59 ML/MIN; eGFR 65 ML/MIN
[2023-01-26] MEDS: K and/or MAG REPLACEMENT MC SCH ×2 (08:00→20:00)
[2023-01-26] MEDS ORDERED: folic acid 0.4mg tablet PO SCH (08:00)
[2023-01-26] MEDS: docusate sod 100mg capsule PO SCH ×2 (08:00→20:38)
[2023-01-26] MEDS ORDERED: non-formulary drug (Ubidecarenone (Co Q-10) 1 CAP) PO SCH (08:00)
[2023-01-26] MEDS: pantoprazole 40mg Tablet.DR PO SCH (08:26)
[2023-01-26] MEDS: losartan 50mg tablet PO SCH (08:29)
[2023-01-26] MEDS: furosemide 40mg tablet PO SCH (08:29)
[2023-01-26] MEDS: potassium chloride 10mEq ER tablet PO SCH ×2 (08:29→20:38)
[2023-01-26] MEDS: apixaban 5mg tablet PO SCH ×2 (08:29→20:00)
[2023-01-26] MEDS: magnesium oxide 400mg tablet PO SCH ×2 (08:29→20:37)
[2023-01-26] MEDS: fenofibrate 145mg tablet PO SCH (08:30)
[2023-01-26] MEDS: multivitamins, therapeutics tablet PO SCH (08:30)
[2023-01-26] MEDS: sertraline 25mg tablet PO SCH (08:30)
[2023-01-26] MEDS: budesonide 0.5mg/2ml UD nebule IH SCH ×2 (08:47→21:01)
[2023-01-26] MEDS ORDERED: aminophylline 250mg/10ml inj. IV PRN (08:50)
[2023-01-26] MEDS ORDERED: nitroGLYCERIN 0.4mg SUBLingual tab SL PRN (08:50)
[2023-01-26] MEDS ORDERED: regadenoson 0.4mg/5ml syringe IV PRN (08:50)
[2023-01-26] MEDS ORDERED: metoprolol tartrate 1mg/ml inj IV PRN (08:50)
[2023-01-26] MEDS ORDERED: iohexol 350MG/ML 100ml bottle IV ONE (10:30)
--- NOTE | 2023-01-26 10:56 | NUR ---
Received order for consult. Tried to meet with patient but patient was with family.
--- NOTE | 2023-01-26 18:40 | NUR ---
Problems reprioritized. Patient report given, questions answered & plan of care reviewed with NEHEMIAS Meza.
[2023-01-26] MEDS: atorvastatin 20mg tablet PO SCH (20:37)
[2023-01-26] MEDS: amLODIPine 5mg tablet PO SCH ×2 (20:38→20:46)
[2023-01-27] VITALS (10 sets, daily range): BP systolic 90–112; BP diastolic 64–75; PULSE 70–81; RESP 14–18; TEMP 97.2–97.9; O2SAT 96–97
[2023-01-27] MEDS: HYDROcodone/acetaminophen 10/325mg tab PO PRN ×3 (03:51→16:25)
[2023-01-27] MEDS: potassium cl 20mEq in 1/2 NS 1,000 ML IV SCH ×3 (04:31→23:30)
--- NOTE | 2023-01-27 06:31 | NUR ---
Problems reprioritized. Patient report given, questions answered & plan of care reviewed with nallely Almodovar.
--- NOTE | 2023-01-27 06:40 | NUR ---
i noticed that there is norco administer entry on eMAR @4902 by student. i belived the student clicked administer button by mistake. there is no history of taking norco out of omni and pt doesn't believe he received norco around that time.
[2023-01-27 06:56] LABS: BASOPHILS % (AUTO) 0.4 % (0-1); EOSINOPHILS # (AUTO) 0.2 X10'3 (0-0.9); EOSINOPHILS % (AUTO) 4.2 % (0-6); HEMATOCRIT 32.6 % (42.0-52.0); HEMOGLOBIN 10.9 g/dl (14.0-17.9); LYMPHOCYTES # (AUTO) 0.6 X10'3 (1.1-4.8); LYMPHOCYTES % (AUTO) 11.8 % (21-51); MEAN CORPUSCULAR HEMOGLOBIN 33.4 PG (27.0-31.0); MEAN CORPUSCULAR HGB CONC 33.6 g/dL (33.0-36.5); MEAN CORPUSCULAR VOLUME 99.4 FL (78-98); MONOCYTES # (AUTO) 0.6 X10'3 (0-0.9); MONOCYTES % (AUTO) 10.8 % (2-12); NEUTROPHILS % (AUTO) 72.8 % (42-75); PLATELET COUNT 129 X10'3 (140-440); RED BLOOD COUNT 3.28 X10'6 (4.70-6.10); RED CELL DISTRIBUTION WIDTH 13.2 % (11.5-14.5); WHITE BLOOD COUNT 5.4 X10'3 (4.5-11.0)
[2023-01-27 07:13] LABS: ALANINE AMINOTRANSFERASE 25 U/L (12-78); ALBUMIN 2.2 G/DL (3.4-5.0); ALBUMIN/GLOBULIN RATIO 0.8 (1.1-1.5); ALKALINE PHOSPHATASE 118 IU/L (46-116); ANION GAP 6 (8-16); ASPARTATE AMINO TRANSFERASE 38 U/L (10-37); BILIRUBIN,TOTAL 0.8 MG/DL (0.1-1.0); BLOOD UREA NITROGEN 10 MG/DL (7-18); BUN/CREATININE RATIO 10.1 (10.0-20.0); CALCIUM 8.1 MG/DL (8.5-10.1); CHLORIDE 102 MMOL/L (99-107); CREATININE 0.99 MG/DL (0.60-1.10); GLUCOSE 95 MG/DL (70-104); MAGNESIUM 1.5 MG/DL (1.5-2.4); POTASSIUM 4.4 MMOL/L (3.5-5.1); SODIUM 134 MMOL/L (135-145); TOTAL CARBON DIOXIDE 26.1 MMOL/L (24-32); TOTAL PROTEIN 4.8 G/DL (6.4-8.2); eCRCL 64 ML/MIN; eGFR 75 ML/MIN
[2023-01-27] MEDS: budesonide 0.5mg/2ml UD nebule IH SCH ×2 (07:55→20:40)
[2023-01-27] MEDS: K and/or MAG REPLACEMENT MC SCH ×2 (08:00→20:00)
[2023-01-27] MEDS: apixaban 5mg tablet PO SCH (08:00)
--- NOTE | 2023-01-27 09:01 | NUR ---
Spoke to Yara Nelson regarding if Dr Mcknight was planning on taking patient to surgery. Per Yara she is not sure at this time and is aware patient did have Echo and Cardiac stress test yesterday. Per Yara ok to feed patient hold Eliquis at this time and she will speak to Dr Mcknight and get back to me.
[2023-01-27] MEDS: thiamine 100mg/ml 2ml inj. IV SCH ×3 (09:14→21:16)
[2023-01-27] MEDS: folic acid 1mg/0.2ml inj IV SCH (09:14)
[2023-01-27] MEDS: docusate sod 100mg capsule PO SCH ×2 (09:15→21:17)
[2023-01-27] MEDS: pantoprazole 40mg Tablet.DR PO SCH (09:15)
[2023-01-27] MEDS: losartan 50mg tablet PO SCH (09:16)
[2023-01-27] MEDS: multivitamins, therapeutics tablet PO SCH (09:17)
[2023-01-27] MEDS: furosemide 40mg tablet PO SCH (09:17)
[2023-01-27] MEDS: magnesium oxide 400mg tablet PO SCH ×2 (09:17→21:17)
[2023-01-27] MEDS: sertraline 25mg tablet PO SCH (09:18)
[2023-01-27] MEDS: potassium chloride 10mEq ER tablet PO SCH ×2 (09:18→21:16)
[2023-01-27] MEDS: fenofibrate 145mg tablet PO SCH (09:18)
[2023-01-27] MEDS: LIPASE/PROTEASE/AMYLASE 10,500 units CAPSULE.DR PO SCH ×3 (09:27→17:47)
[2023-01-27] MEDS: JUVEN Shake w/Arg/Glut/Ca2+Bmb (Juven 19.3gm) pkt 240ml PO SCH (18:00)
[2023-01-27] MEDS: atorvastatin 20mg tablet PO SCH (21:16)
[2023-01-27] MEDS: amLODIPine 5mg tablet PO SCH (21:17)
[2023-01-28] VITALS (9 sets, daily range): BP systolic 104–138; BP diastolic 37–80; PULSE 50–95; RESP 14–20; TEMP 96.6–98.2; O2SAT 94–98
[2023-01-28] MEDS: HYDROcodone/acetaminophen 10/325mg tab PO PRN (03:46)
--- NOTE | 2023-01-28 06:15 | NUR ---
Patient in room ORTHO 4020. I have received report from Adamaris DEL CID and had the opportunity to ask questions and assume patient care.
--- NOTE | 2023-01-28 06:48 | NUR ---
Report to Michelle.
[2023-01-28] MEDS: K and/or MAG REPLACEMENT MC SCH ×2 (08:00→20:00)
[2023-01-28] MEDS: budesonide 0.5mg/2ml UD nebule IH SCH ×2 (08:27→20:48)
[2023-01-28] MEDS: pantoprazole 40mg Tablet.DR PO SCH (08:47)
[2023-01-28] MEDS: docusate sod 100mg capsule PO SCH ×2 (08:47→20:00)
[2023-01-28] MEDS: sertraline 25mg tablet PO SCH (08:48)
[2023-01-28] MEDS: magnesium oxide 400mg tablet PO SCH ×2 (08:48→20:38)
[2023-01-28] MEDS: furosemide 40mg tablet PO SCH (08:48)
[2023-01-28] MEDS: fenofibrate 145mg tablet PO SCH (08:48)
[2023-01-28] MEDS: losartan 50mg tablet PO SCH (08:48)
[2023-01-28] MEDS: potassium chloride 10mEq ER tablet PO SCH ×2 (08:48→20:39)
[2023-01-28] MEDS: LIPASE/PROTEASE/AMYLASE 10,500 units CAPSULE.DR PO SCH ×3 (08:48→23:16)
[2023-01-28] MEDS: multivitamins, therapeutics tablet PO SCH (08:48)
[2023-01-28] MEDS: JUVEN Shake w/Arg/Glut/Ca2+Bmb (Juven 19.3gm) pkt 240ml PO SCH ×3 (08:54→23:14)
[2023-01-28 09:30] LABS: BASOPHILS % (AUTO) 0.2 % (0-1); EOSINOPHILS # (AUTO) 0.2 X10'3 (0-0.9); EOSINOPHILS % (AUTO) 3.8 % (0-6); HEMATOCRIT 31.1 % (42.0-52.0); HEMOGLOBIN 10.6 g/dl (14.0-17.9); LYMPHOCYTES # (AUTO) 0.6 X10'3 (1.1-4.8); LYMPHOCYTES % (AUTO) 12.3 % (21-51); MEAN CORPUSCULAR HEMOGLOBIN 33.8 PG (27.0-31.0); MEAN CORPUSCULAR VOLUME 99.4 FL (78-98); MEAN PLATELET VOLUME 9.2 FL (7.4-10.4); MONOCYTES # (AUTO) 0.6 X10'3 (0-0.9); MONOCYTES % (AUTO) 12.5 % (2-12); NEUTROPHILS # (AUTO) 3.5 X10'3 (1.8-7.7); NEUTROPHILS % (AUTO) 71.2 % (42-75); PLATELET COUNT 138 X10'3 (140-440); RED BLOOD COUNT 3.13 X10'6 (4.70-6.10); RED CELL DISTRIBUTION WIDTH 13.4 % (11.5-14.5); WHITE BLOOD COUNT 4.9 X10'3 (4.5-11.0)
[2023-01-28 09:37] LABS: APTT 29 SECONDS (22-32); D-DIMER 1.46 MG/L FEU (0-0.50); PROTHROMBIN TIME 10.5 SECONDS (9.0-12.0)
[2023-01-28 10:03] LABS: ALANINE AMINOTRANSFERASE 27 U/L (12-78); ALBUMIN 2.3 G/DL (3.4-5.0); ALBUMIN/GLOBULIN RATIO 0.9 (1.1-1.5); ALKALINE PHOSPHATASE 125 IU/L (46-116); ANION GAP 6 (8-16); ASPARTATE AMINO TRANSFERASE 35 U/L (10-37); BILIRUBIN,TOTAL 0.8 MG/DL (0.1-1.0); BLOOD UREA NITROGEN 9 MG/DL (7-18); BUN/CREATININE RATIO 9.4 (10.0-20.0); CALCIUM 8.4 MG/DL (8.5-10.1); CHLORIDE 101 MMOL/L (99-107); CREATININE 0.96 MG/DL (0.60-1.10); GLUCOSE 84 MG/DL (70-104); MAGNESIUM 1.5 MG/DL (1.5-2.4); POTASSIUM 4.6 MMOL/L (3.5-5.1); SODIUM 134 MMOL/L (135-145); TOTAL CARBON DIOXIDE 26.6 MMOL/L (24-32); eCRCL 66 ML/MIN; eGFR 77 ML/MIN
[2023-01-28] MEDS: cyclobenzaprine 10mg tablet PO SCH ×2 (16:00→23:06)
--- NOTE | 2023-01-28 18:08 | NUR ---
I have reviewed and agree with all interventions, assessments performed and documented by elvis RICHTER .
--- NOTE | 2023-01-28 18:19 | NUR ---
Problems reprioritized. Patient report given, questions answered & plan of care reviewed with Rojelio RICHTER.
[2023-01-28] MEDS: potassium cl 20mEq in 1/2 NS 1,000 ML IV SCH (19:01)
--- NOTE | 2023-01-28 19:15 | NUR ---
noted that pt missed Flexeril dose at 1600, but has another scheduled dose at 0000. Call to pharmacy; per pharmacy, hold 1600 dose, as it is now too close to the time for the next dose for safe administration.
[2023-01-28] MEDS: atorvastatin 20mg tablet PO SCH (20:37)
[2023-01-28] MEDS: amLODIPine 5mg tablet PO SCH (20:42)
[2023-01-29] VITALS (10 sets, daily range): BP systolic 116–128; BP diastolic 78–83; PULSE 70–83; RESP 13–18; TEMP 97.1–98; O2SAT 98–99
[2023-01-29] MEDS: HYDROcodone/acetaminophen 10/325mg tab PO PRN ×2 (01:34→18:36)
--- NOTE | 2023-01-29 01:55 | NUR ---
pt moved from room 4020A to room 4017V
[2023-01-29] MEDS: potassium cl 20mEq in 1/2 NS 1,000 ML IV SCH ×2 (04:18→16:43)
--- NOTE | 2023-01-29 06:00 | NUR ---
Patient in room ORTHO 4015. I have received report from Rojelio RICHTER and had the opportunity to ask questions and assume patient care.
[2023-01-29 06:32] LABS: HEMOGLOBIN 10.7 g/dl (14.0-17.9); PLATELET COUNT 161 X10'3 (140-440)
--- NOTE | 2023-01-29 06:32 | NUR ---
Report to Jaky RICHTER
[2023-01-29 06:34] LABS: HEMATOCRIT 31.4 % (42.0-52.0); MEAN CORPUSCULAR HGB CONC 34.1 g/dL (33.0-36.5); MEAN CORPUSCULAR VOLUME 99.6 FL (78-98); MEAN PLATELET VOLUME 9.1 FL (7.4-10.4); RED BLOOD COUNT 3.16 X10'6 (4.70-6.10); RED CELL DISTRIBUTION WIDTH 13.7 % (11.5-14.5); WHITE BLOOD COUNT 5.4 X10'3 (4.5-11.0)
[2023-01-29 06:42] LABS: ALANINE AMINOTRANSFERASE 25 U/L (12-78); ALBUMIN 2.3 G/DL (3.4-5.0); ALBUMIN/GLOBULIN RATIO 0.8 (1.1-1.5); ALKALINE PHOSPHATASE 114 IU/L (46-116); ANION GAP 5 (8-16); ASPARTATE AMINO TRANSFERASE 39 U/L (10-37); BLOOD UREA NITROGEN 10 MG/DL (7-18); BUN/CREATININE RATIO 9.5 (10.0-20.0); CALCIUM 8.6 MG/DL (8.5-10.1); CHLORIDE 101 MMOL/L (99-107); CREATININE 1.05 MG/DL (0.60-1.10); GLUCOSE 87 MG/DL (70-104); MAGNESIUM 1.6 MG/DL (1.5-2.4); SODIUM 134 MMOL/L (135-145); TOTAL CARBON DIOXIDE 27.7 MMOL/L (24-32); TOTAL PROTEIN 5.2 G/DL (6.4-8.2); eCRCL 60 ML/MIN; eGFR 70 ML/MIN
[2023-01-29 07:39] LABS: TOTAL CELLS COUNTED 100
[2023-01-29 07:40] LABS: PLATELET ESTIMATE NORMAL
[2023-01-29] MEDS: K and/or MAG REPLACEMENT MC SCH ×2 (08:00→20:00)
[2023-01-29] MEDS: JUVEN Shake w/Arg/Glut/Ca2+Bmb (Juven 19.3gm) pkt 240ml PO SCH ×3 (08:00→18:00)
[2023-01-29] MEDS: budesonide 0.5mg/2ml UD nebule IH SCH ×2 (08:25→21:30)
[2023-01-29] MEDS: LIPASE/PROTEASE/AMYLASE 10,500 units CAPSULE.DR PO SCH ×3 (09:20→16:31)
[2023-01-29] MEDS: pantoprazole 40mg Tablet.DR PO SCH (09:20)
[2023-01-29] MEDS: potassium chloride 10mEq ER tablet PO SCH ×2 (09:20→21:12)
[2023-01-29] MEDS: magnesium oxide 400mg tablet PO SCH ×2 (09:21→20:57)
[2023-01-29] MEDS: folic acid 1mg tablet PO SCH (09:21)
[2023-01-29] MEDS: thiamine 100mg tablet PO SCH (09:21)
[2023-01-29] MEDS: docusate sod 100mg capsule PO SCH ×2 (09:21→20:58)
[2023-01-29] MEDS: fenofibrate 145mg tablet PO SCH (09:22)
[2023-01-29] MEDS: sertraline 25mg tablet PO SCH (09:22)
[2023-01-29] MEDS: cyclobenzaprine 10mg tablet PO SCH ×2 (09:22→16:31)
[2023-01-29] MEDS: multivitamins, therapeutics tablet PO SCH (09:22)
[2023-01-29] MEDS: furosemide 40mg tablet PO SCH (09:22)
[2023-01-29] MEDS: losartan 50mg tablet PO SCH (09:23)
--- NOTE | 2023-01-29 13:47 | NUR ---
called report to recovery and spoke with Iris DEL CID
--- NOTE | 2023-01-29 14:44 | NUR ---
PAGER ID: [phone] MESSAGE: [id number]- Jamal Woodson pt sdanielle was pushed to tomorrow, he is requesting a new surgeon. pls advise? Marcellus Starkey [phone]
--- NOTE | 2023-01-29 14:45 | NUR ---
Per Dr. Roa unable to change orthopaedic surgeons. I let the patient and family know. Both are not happy. Patient has been in the hospital for 5 days and sx got moved 3 different times. I spoke with charge Nurse Roger about this and he said that he doesn't know what to do to. He suggested that I call dry house worker. I spoke with Fawn mejia and advised her of the situation. She stated that the only way that a surgeon can be changed in by the surgeon. so Dr. Figueroa would need to reach out to another surgeon to consult. I advised her that the family want to talk to someone. Fawn advised me to call admin CNO at [phone]. I called and spoke with Isela that CNO executive secretary. I advised her of what is going on. She placed me on hold to speak with Erich the BURNISHER. Erich stated that if the patient sx get re-scheduled one more time then have house sup call Erich. Erich(BURNISHER) and Harish (CNO) will have another orthopaedic surgeon do the patient surgery. I advised the patient/family and charge nurse of this.
--- NOTE | 2023-01-29 18:24 | NUR ---
Problems reprioritized. Patient report given, questions answered & plan of care reviewed with Neeta DEL CID.
--- NOTE | 2023-01-29 18:35 | NUR ---
PAGER ID: [phone] MESSAGE: [id number]- Jamal Woodson pt hasn't been on his Eliquis for 3 days? pls advise? Marcellus roche [phone]
--- NOTE | 2023-01-29 18:39 | NUR ---
Dr. ko called back and ordered a 70mg Lovenox sq 1x tonight. Ordered placed.
[2023-01-29] MEDS ORDERED: enoxaparin 100mg/ml syringe SUBCUT ONE (19:00)
[2023-01-29] MEDS: atorvastatin 20mg tablet PO SCH (20:57)
[2023-01-29] MEDS: amLODIPine 5mg tablet PO SCH (21:07)
[2023-01-30] VITALS (35 sets, daily range): BP systolic 65–113; BP diastolic 47–78; PULSE 68–112; RESP 10–20; TEMP 96.9–97.9; O2SAT 93–100
[2023-01-30] MEDS: HYDROcodone/acetaminophen 10/325mg tab PO PRN ×3 (00:42→19:50)
[2023-01-30] MEDS: cyclobenzaprine 10mg tablet PO SCH ×3 (00:44→16:00)
[2023-01-30] MEDS: potassium cl 20mEq in 1/2 NS 1,000 ML IV SCH ×3 (00:45→22:40)
--- NOTE | 2023-01-30 05:59 | NUR ---
Problems reprioritized. Patient report given, questions answered & plan of care reviewed with BERENICE RICHTER.
[2023-01-30 06:57] LABS: BASOPHILS % (AUTO) 0.7 % (0-1); EOSINOPHILS # (AUTO) 0.2 X10'3 (0-0.9); EOSINOPHILS % (AUTO) 4.3 % (0-6); HEMATOCRIT 33.2 % (42.0-52.0); HEMOGLOBIN 11.1 g/dl (14.0-17.9); LYMPHOCYTES # (AUTO) 0.9 X10'3 (1.1-4.8); LYMPHOCYTES % (AUTO) 22.3 % (21-51); MEAN CORPUSCULAR HEMOGLOBIN 33.6 PG (27.0-31.0); MEAN CORPUSCULAR HGB CONC 33.5 g/dL (33.0-36.5); MEAN CORPUSCULAR VOLUME 100.4 FL (78-98); MEAN PLATELET VOLUME 8.9 FL (7.4-10.4); MONOCYTES # (AUTO) 0.7 X10'3 (0-0.9); MONOCYTES % (AUTO) 16.1 % (2-12); NEUTROPHILS # (AUTO) 2.3 X10'3 (1.8-7.7); NEUTROPHILS % (AUTO) 56.6 % (42-75); PLATELET COUNT 174 X10'3 (140-440); RED BLOOD COUNT 3.31 X10'6 (4.70-6.10); RED CELL DISTRIBUTION WIDTH 13.6 % (11.5-14.5); WHITE BLOOD COUNT 4.1 X10'3 (4.5-11.0)
[2023-01-30 07:09] LABS: ALANINE AMINOTRANSFERASE 33 U/L (12-78); ALBUMIN 2.4 G/DL (3.4-5.0); ALBUMIN/GLOBULIN RATIO 0.8 (1.1-1.5); ALKALINE PHOSPHATASE 137 IU/L (46-116); ANION GAP 2 (8-16); ASPARTATE AMINO TRANSFERASE 61 U/L (10-37); BLOOD UREA NITROGEN 15 MG/DL (7-18); BUN/CREATININE RATIO 13.5 (10.0-20.0); CALCIUM 8.6 MG/DL (8.5-10.1); CHLORIDE 101 MMOL/L (99-107); CREATININE 1.11 MG/DL (0.60-1.10); GLUCOSE 92 MG/DL (70-104); POTASSIUM 4.1 MMOL/L (3.5-5.1); SODIUM 133 MMOL/L (135-145); TOTAL CARBON DIOXIDE 29.6 MMOL/L (24-32); TOTAL PROTEIN 5.4 G/DL (6.4-8.2); eCRCL 57 ML/MIN; eGFR 65 ML/MIN
[2023-01-30] MEDS: magnesium oxide 400mg tablet PO SCH ×2 (07:35→19:49)
[2023-01-30] MEDS: sertraline 25mg tablet PO SCH (07:35)
[2023-01-30] MEDS: pantoprazole 40mg Tablet.DR PO SCH (07:36)
[2023-01-30] MEDS: folic acid 1mg tablet PO SCH (07:36)
[2023-01-30] MEDS: docusate sod 100mg capsule PO SCH ×2 (07:36→19:49)
[2023-01-30] MEDS: thiamine 100mg tablet PO SCH (07:37)
[2023-01-30] MEDS: furosemide 40mg tablet PO SCH (07:38)
[2023-01-30] MEDS: multivitamins, therapeutics tablet PO SCH (07:38)
[2023-01-30] MEDS: potassium chloride 10mEq ER tablet PO SCH ×2 (07:38→19:49)
[2023-01-30] MEDS: LIPASE/PROTEASE/AMYLASE 10,500 units CAPSULE.DR PO SCH ×3 (07:44→17:14)
[2023-01-30] MEDS: losartan 50mg tablet PO SCH (07:45)
[2023-01-30] MEDS: fenofibrate 145mg tablet PO SCH (07:45)
[2023-01-30] MEDS: apixaban 5mg tablet PO SCH ×2 (07:47→19:49)
[2023-01-30] MEDS: JUVEN Shake w/Arg/Glut/Ca2+Bmb (Juven 19.3gm) pkt 240ml PO SCH ×3 (08:00→18:00)
[2023-01-30] MEDS: K and/or MAG REPLACEMENT MC SCH ×2 (08:00→20:00)
[2023-01-30] MEDS: budesonide 0.5mg/2ml UD nebule IH SCH ×2 (08:33→20:12)
[2023-01-30] MEDS: albuterol 2.5 MG/3 ML nebule NEB PRN ×2 (08:33→20:12)
[2023-01-30] MEDS ORDERED: propofol inj 20 ML IV ONE (09:21)
[2023-01-30] MEDS ORDERED: ROPIVAcaine 0.5% (5mg/ml) 30ml vial ONE (09:23)
[2023-01-30] MEDS ORDERED: sevoflurane 250ml liquid IH ONE (09:51)
[2023-01-30] MEDS ORDERED: midazolam 1 mg/ML 2ml injection ONE (09:51)
[2023-01-30] MEDS ORDERED: fentaNYL/PF 50MCG/1 ML 2ML syringe ONE (09:51)
--- NOTE | 2023-01-30 10:29 | NUR ---
Initial: Pt admit for left proximal humerus closed fracture s/p fall. Per SPECIAL EFFECTS PERSON documentation pt in OR at this time. Per EMR pt with h/o pancreatitis and EtOH, currently receiving routine pancreatic enzymes, Thiamine, Folic acid, and MVI. Pt on a heart healthy diet and eating well, documented with average 84% PO intake of meals meeting 100% estimated nutrient needs. Noted a Ben shake is ordered TID though per documentation pt has never received ONS d/t being NPO. Recommend reducing frequency to BID post-op per Graff recommendations. LBM 01/27 per EMR. Pt receiving routine bowel care and has PRN bowel care available. No further nutrition intervention implemented at this time. Will continue to follow and make recommendations as appropriate. Recommendations: 1) Continue heart healthy diet 2) Decrease Ben shake to BID post-op 3) Continue routine Thiamine, Folic acid, and MVI for EtOH hx 4) Continue Pancreaze given pancreatitis hx 5) Routine bowel care; utilize PRN bowel care if pt continues without a BM 6) Weekly scaled weights Addendum: 01/30/23 at [address] Amended: Links added.
[2023-01-30] MEDS ORDERED: ringers solution, lacted 1,000 ML IV SCH (11:20)
[2023-01-30] MEDS ORDERED: morphine 4 MG/ML inj SYRINge IV PRN (11:20)
[2023-01-30] MEDS ORDERED: meperidine/PF 25mg/ml syringe IV PRN ×3 (11:20)
[2023-01-30] MEDS ORDERED: ondansetron/PF 4mg/2ml inj IV PRN (11:20)
[2023-01-30] MEDS ORDERED: labetalol 20mg/4ml (5mg/ml) syringe IV PRN (11:20)
[2023-01-30] MEDS ORDERED: proCHLORperazine 10 MG/2 ml inj IV PRN (11:20)
[2023-01-30] MEDS ORDERED: morphine 2 MG/ML inj. syringe IV PRN (11:20)
[2023-01-30] MEDS ORDERED: vancomycin 1,000mg inj ONE (11:23)
[2023-01-30] MEDS ORDERED: ceFAZolin 1000mg inj ONE ×2 (11:45)
--- NOTE | 2023-01-30 11:59 | NUR ---
Received from OR via BED, accompanied by Anesthesiologist DR MCLAUGHLIN and report given by Anesthesiologist AND REFRIGERATION ENGINE OPERATOR. PT VERY DROWSY, NO S/S OF DISTRESS/DISCOMFORT, PT W/LMA. LEFT SHOULDER W/ISLAND DRSG COVERING INCISION CDI, SHOULDER WRAP AND SLING ON, POWDER PACK IN PLACE. PT ROUSEABLE, LMA D/C'D. Addendum: 01/30/23 at 1258 by Alesia Cbeallos RN Amended: Links added.
[2023-01-30] MEDS ORDERED: albumin (Human) 5% 250ml 250 ML IV ONE ×2 (12:52→13:34)
--- NOTE | 2023-01-30 13:00 | NUR ---
SHOULDER X RAY'S TAKEN, PTS DISTAL PORTION OF DRSG NOTED TO BE BLEEDING, 4X4'S APPLIED, CALL INTO DR ELLISON TO UPDATE, ORDERS RECEIVED TO REINFORCE W/4X4, ABD DRSG AND SHADE WRAP, 2 SMALL SKIN TEARS NOTED ZEROFORM APPLIED TP SKIN TEARS W/WOUND DRSG OVER TOP, 4X4,ABD PAD, KERLEX W/SHADE WRAP FOR REINFORCEMENT OF DISTAL DRSG. PTS BP 75'49, RETAKEN, PT ASYMPTOMATIC, DR MCLAUGHLIN IN, UPDATED ORDERS TO GIVE ALBUMIN 5% 250 ML Addendum: 01/30/23 at 1307 by Alesia Ceballos RN Amended: Links added.
--- NOTE | 2023-01-30 13:42 | NUR ---
PTS BP REMAINS UNCHANGED, DR MCLAUGHLIN HERE, ORDERS TO GIVE ANOTHER 250 ML ALBUMIN. Addendum: 01/30/23 at 1343 by Alesia Ceballos RN Amended: Links added.
--- NOTE | 2023-01-30 14:20 | NUR ---
BP REMAINS AROUND THE SAME, SLIGHTLY IMPROVED, PT REMAINS ASYMPTOMATIC, UPDATED DR MCLAUGHLIN AND IS OKAY TO TRANSFER PT TO ORTHO. Addendum: 01/30/23 at 1422 by Alesia Ceballos RN Amended: Links added.
--- NOTE | 2023-01-30 14:49 | NUR ---
Report called to receiving nurse. PT STATES PAIN REMAINS MILD AND DECLINES INTERVENTION. Transferred via BED. NO Belongings. PTS RN AT BEDSIDE TO RECEIVE PT, BLL, CALL LIGHT GIVEN, SIDE RAILS UP X 2, PTS FAMILY AT BEDSIDE. Special Issues communicated to receiving nurse. YES. Addendum: 01/30/23 at 1456 by Alesia Ceballos RN Amended: Links added.
[2023-01-30] MEDS: ceFAZolin/D5W- 1GM premix 50 ML IV SCH (17:18)
--- NOTE | 2023-01-30 18:27 | NUR ---
Problems reprioritized. Patient report given, questions answered & plan of care reviewed with NEHEMIAS Santacruz.
[2023-01-30 19:37] LABS: BASOPHILS % (AUTO) 0.1 % (0-1); EOSINOPHILS % (AUTO) 0.1 % (0-6); HEMATOCRIT 28.2 % (42.0-52.0); HEMOGLOBIN 9.3 g/dl (14.0-17.9); LYMPHOCYTES # (AUTO) 0.2 X10'3 (1.1-4.8); LYMPHOCYTES % (AUTO) 3.4 % (21-51); MEAN CORPUSCULAR HEMOGLOBIN 33.1 PG (27.0-31.0); MEAN CORPUSCULAR VOLUME 100.5 FL (78-98); MEAN PLATELET VOLUME 8.9 FL (7.4-10.4); MONOCYTES # (AUTO) 0.3 X10'3 (0-0.9); MONOCYTES % (AUTO) 6.2 % (2-12); NEUTROPHILS # (AUTO) 5.1 X10'3 (1.8-7.7); NEUTROPHILS % (AUTO) 90.2 % (42-75); PLATELET COUNT 177 X10'3 (140-440); RED BLOOD COUNT 2.81 X10'6 (4.70-6.10); RED CELL DISTRIBUTION WIDTH 13.7 % (11.5-14.5); WHITE BLOOD COUNT 5.6 X10'3 (4.5-11.0)
[2023-01-30] MEDS: amLODIPine 5mg tablet PO SCH (21:00)
[2023-01-30] MEDS: atorvastatin 20mg tablet PO SCH (22:37)
[2023-01-31] MEDS: ceFAZolin/D5W- 1GM premix 50 ML IV SCH ×3 (00:15→16:14)
[2023-01-31] MEDS: cyclobenzaprine 10mg tablet PO SCH ×4 (00:15→23:58)
[2023-01-31] MEDS: HYDROcodone/acetaminophen 10/325mg tab PO PRN ×3 (00:19→10:01)
[2023-01-31 02:00] VITALS: BP 98/58; PULSE 84; RESP 20; TEMP 98.8; O2SAT 94
[2023-01-31 05:49] LABS: ALANINE AMINOTRANSFERASE 19 U/L (12-78); ALBUMIN 2.7 G/DL (3.4-5.0); ALBUMIN/GLOBULIN RATIO 1.1 (1.1-1.5); ALKALINE PHOSPHATASE 89 IU/L (46-116); ANION GAP 5 (8-16); ASPARTATE AMINO TRANSFERASE 39 U/L (10-37); BILIRUBIN,TOTAL 0.6 MG/DL (0.1-1.0); BLOOD UREA NITROGEN 19 MG/DL (7-18); BUN/CREATININE RATIO 16.1 (10.0-20.0); CALCIUM 8.6 MG/DL (8.5-10.1); CHLORIDE 101 MMOL/L (99-107); CREATININE 1.18 MG/DL (0.60-1.10); GLUCOSE 142 MG/DL (70-104); POTASSIUM 4.5 MMOL/L (3.5-5.1); SODIUM 133 MMOL/L (135-145); TOTAL CARBON DIOXIDE 27.1 MMOL/L (24-32); TOTAL PROTEIN 5.1 G/DL (6.4-8.2); eCRCL 53 ML/MIN; eGFR 61 ML/MIN
[2023-01-31 06:00] VITALS: BP 104/63; PULSE 88; RESP 16; TEMP 97.8; O2SAT 94
--- NOTE | 2023-01-31 06:19 | NUR ---
Problems reprioritized. Patient report given, questions answered & plan of care reviewed with BERENICE RICHTER.
[2023-01-31] MEDS: potassium cl 20mEq in 1/2 NS 1,000 ML IV SCH ×2 (06:41→17:10)
[2023-01-31] MEDS: magnesium oxide 400mg tablet PO SCH ×2 (07:09→19:38)
[2023-01-31] MEDS: docusate sod 100mg capsule PO SCH ×2 (07:09→19:38)
[2023-01-31] MEDS: pantoprazole 40mg Tablet.DR PO SCH (07:09)
[2023-01-31] MEDS: furosemide 40mg tablet PO SCH (07:09)
[2023-01-31] MEDS: sertraline 25mg tablet PO SCH (07:09)
[2023-01-31] MEDS: thiamine 100mg tablet PO SCH (07:09)
[2023-01-31] MEDS: apixaban 5mg tablet PO SCH ×2 (07:09→19:38)
[2023-01-31] MEDS: potassium chloride 10mEq ER tablet PO SCH ×2 (07:09→19:38)
[2023-01-31] MEDS: multivitamins, therapeutics tablet PO SCH (07:09)
[2023-01-31] MEDS: folic acid 1mg tablet PO SCH (07:09)
[2023-01-31] MEDS: LIPASE/PROTEASE/AMYLASE 10,500 units CAPSULE.DR PO SCH ×3 (07:10→17:19)
[2023-01-31] MEDS: losartan 50mg tablet PO SCH (07:12)
[2023-01-31 08:00] VITALS: RESP 16; O2SAT 94
[2023-01-31] MEDS: K and/or MAG REPLACEMENT MC SCH ×2 (08:00→20:00)
[2023-01-31] MEDS: JUVEN Shake w/Arg/Glut/Ca2+Bmb (Juven 19.3gm) pkt 240ml PO SCH ×3 (08:00→18:23)
[2023-01-31] MEDS: fenofibrate 145mg tablet PO SCH (08:30)
[2023-01-31] MEDS: budesonide 0.5mg/2ml UD nebule IH SCH ×2 (10:38→20:41)
--- NOTE | 2023-01-31 12:30 | NUR ---
I have reviewed and agree with the interventions, assessment performed, and documentation by Mateo Aragon LVN.[].
[2023-01-31] MEDS: oxyCODONE/APAP 10/325mg tablet PO PRN ×2 (17:19→21:16)
--- NOTE | 2023-01-31 18:24 | NUR ---
Problems reprioritized. Patient report given, questions answered & plan of care reviewed with NEHEMIAS Duran.
[2023-01-31 18:30] VITALS: BP 98/63; PULSE 88; RESP 15; TEMP 98.2; O2SAT 100
[2023-01-31 20:41] VITALS: PULSE 89; RESP 18; O2SAT 95
[2023-01-31 20:49] VITALS: PULSE 89; RESP 16
[2023-01-31] MEDS: atorvastatin 20mg tablet PO SCH (21:01)
[2023-02-01] MEDS: potassium cl 20mEq in 1/2 NS 1,000 ML IV SCH ×2 (01:20→12:05)
[2023-02-01] MEDS: oxyCODONE/APAP 10/325mg tablet PO PRN ×2 (01:33→06:55)
[2023-02-01 06:00] VITALS: BP 94/66; PULSE 87; RESP 16; TEMP 97.9; O2SAT 94
--- NOTE | 2023-02-01 06:23 | NUR ---
Patient in room ORTHO 4015. I have received report from NEHEMIAS Duran and had the opportunity to ask questions and assume patient care.
--- NOTE | 2023-02-01 06:30 | NUR ---
Problems reprioritized. Patient report given, questions answered & plan of care reviewed with BERENICE. Addendum: 02/01/23 at 0647 by Juan R Terrazas RN Amended: Links added.
[2023-02-01] MEDS: sertraline 25mg tablet PO SCH (07:22)
[2023-02-01] MEDS: apixaban 5mg tablet PO SCH (07:22)
[2023-02-01] MEDS: docusate sod 100mg capsule PO SCH (07:22)
[2023-02-01] MEDS: LIPASE/PROTEASE/AMYLASE 10,500 units CAPSULE.DR PO SCH ×2 (07:22→12:04)
[2023-02-01] MEDS: cyclobenzaprine 10mg tablet PO SCH (07:22)
[2023-02-01] MEDS: folic acid 1mg tablet PO SCH (07:22)
[2023-02-01] MEDS: pantoprazole 40mg Tablet.DR PO SCH (07:22)
[2023-02-01] MEDS: thiamine 100mg tablet PO SCH (07:22)
[2023-02-01] MEDS: multivitamins, therapeutics tablet PO SCH (07:23)
[2023-02-01] MEDS: potassium chloride 10mEq ER tablet PO SCH (07:23)
[2023-02-01] MEDS: magnesium oxide 400mg tablet PO SCH (07:23)
[2023-02-01] MEDS: losartan 50mg tablet PO SCH (07:27)
[2023-02-01] MEDS: furosemide 40mg tablet PO SCH (07:27)
[2023-02-01 08:00] VITALS: RESP 16; O2SAT 94
[2023-02-01] MEDS: JUVEN Shake w/Arg/Glut/Ca2+Bmb (Juven 19.3gm) pkt 240ml PO SCH ×2 (08:00→13:00)
[2023-02-01] MEDS: K and/or MAG REPLACEMENT MC SCH (08:00)
[2023-02-01] MEDS: budesonide 0.5mg/2ml UD nebule IH SCH (08:14)
[2023-02-01 08:16] VITALS: PULSE 87; RESP 18; O2SAT 95
[2023-02-01 08:17] VITALS: PULSE 78; RESP 18
[2023-02-01] MEDS: fenofibrate 145mg tablet PO SCH (09:03)
[2023-02-01 10:00] VITALS: BP 102/61; PULSE 67; RESP 16; TEMP 98.9; O2SAT 95
[2023-02-01] MEDS ORDERED: OXYC1TAB17 PO (10:58)
[2023-02-01] MEDS ORDERED: CYCL-1 PO (10:58)
[2023-02-01] MEDS ORDERED: ACET-1008 PO (10:58)
[2023-02-01] MEDS ORDERED: FURO-150 PO (10:58)
--- NOTE | 2023-02-01 15:59 | NUR ---
Pt stable for d/c. IV d/c prior to d/c. Patient signed all d/c paperwork. Significant other present at the time of discharge. Patient was wheeled down to lobby via wheelchair by 1 staff member. Left in private vehicle with significant other to go home.
[2023-02-03] MEDS ORDERED: HYDR-3973 PO (10:09)
[2023-02-03] MEDS ORDERED: CYCL-394 PO (10:13)
[2023-02-03] MEDS ORDERED: HYDR-3964 PO (10:15)
[2023-02-03] MEDS ORDERED: HYDR-3965 PO (13:20)
== END 2023-02-01 15:25 | disposition home health service (06) | DRG 492 ==
LOC: ER 21:31 → ED HOLD 01-25 00:24 → ORTHO 4S 01-25 04:24
PROVIDERS: ADMIT Family Medicine; ATTEND Internal Medicine
PROC: 4A02XM4 Measurement of Cardiac Total Activity, External Approach (ICD-10-PCS; 2023-01-26)
PROC: 3E073KZ Introduction of Other Diagnostic Substance into Coronary Artery, Percutaneous Approach (ICD-10-PCS; 2023-01-26)
PROC: B32T1ZZ Computerized Tomography (CT Scan) of Left Pulmonary Artery using Low Osmolar Contrast (ICD-10-PCS; 2023-01-26)
PROC: B3201ZZ Computerized Tomography (CT Scan) of Thoracic Aorta using Low Osmolar Contrast (ICD-10-PCS; 2023-01-26)
PROC: B32S1ZZ Computerized Tomography (CT Scan) of Right Pulmonary Artery using Low Osmolar Contrast (ICD-10-PCS; 2023-01-26)
PROC: 0PSG04Z Reposition Left Humeral Shaft with Internal Fixation Device, Open Approach (ICD-10-PCS; principal; 2023-01-30 09:51)
DX: S42.292A Other displaced fracture of upper end of left humerus, initial encounter for closed fracture (principal); E43 Unspecified severe protein-calorie malnutrition; E87.1 Hypo-osmolality and hyponatremia; I13.0 Hypertensive heart and chronic kidney disease with heart failure and stage 1 through stage 4 chronic kidney disease, or unspecified chronic kidney disease; N17.9 Acute kidney failure, unspecified; I50.32 Chronic diastolic (congestive) heart failure; E78.5 Hyperlipidemia, unspecified; E83.42 Hypomagnesemia; E87.6 Hypokalemia; J43.9 Emphysema, unspecified; E86.1 Hypovolemia; F32.A Depression, unspecified; K21.9 Gastro-esophageal reflux disease without esophagitis; R09.02 Hypoxemia; E04.1 Nontoxic single thyroid nodule; D64.9 Anemia, unspecified; K76.0 Fatty (change of) liver, not elsewhere classified; F10.129 Alcohol abuse with intoxication, unspecified; Z60.2 Problems related to living alone; I25.10 Atherosclerotic heart disease of native coronary artery without angina pectoris; N18.9 Chronic kidney disease, unspecified; W18.39XA Other fall on same level, initial encounter; Y93.89 Activity, other specified; Y92.89 Other specified places as the place of occurrence of the external cause; I25.2 Old myocardial infarction; Y99.8 Other external cause status; Z87.891 Personal history of nicotine dependence; Z79.01 Long term (current) use of anticoagulants; Z79.899 Other long term (current) drug therapy; Z95.1 Presence of aortocoronary bypass graft; Z95.3 Presence of xenogenic heart valve; Z68.22 Body mass index [BMI] 22.0-22.9, adult
CPT/HCPCS: 36415; 70450; 71275; 73030; 73060; 76000; 78452; 80053; 80061; 80320; 82948; 83036; 83690; 83735; 83880; 84100; 84132; 84484; 85007; 85025; 85379; 85610; 85730; 93017; 93308; 94640; 94760; 97110; 97116; 97161; 97530; 99285; A4565; A4615; A6212; A6213; A6222; A6253; A6446; A6449; A9500; G0378; J0280; J0690; J1650; J2250; J2270; J2405; J2704; J2785; J2795; J3010; J3370; J3411; J3480; J3490; P9045; Q9967

== ENCOUNTER 2023-04-17 00:30 | Inpatient (IN) | payer OTHER, MEDICARE ==
[2023-04-17] VITALS (7 sets, daily range): BP systolic 139; BP diastolic 80; PULSE 67–83; RESP 16–20; TEMP 98.7; O2SAT 96–99
[~2023-04-17] VITALS: Ht 177.8 cm; Wt 68.5 kg
[~2023-04-17 00:30] MED LIST changes: +ACET-1008 PO; -AMLO5TAB16 PO; -FENO134C21 PO; +FURO-150 PO; -FURO40TA4 PO; -OLME20TA23 PO; +OLME20TA69 PO
[2023-04-17 02:27] LABS: BASOPHILS % (AUTO) 0.5 % (0-1); EOSINOPHILS % (AUTO) 0.6 % (0-6); HEMATOCRIT 47.9 % (42.0-52.0); HEMOGLOBIN 15.8 g/dl (14.0-17.9); LYMPHOCYTES # (AUTO) 0.5 X10'3 (1.1-4.8); LYMPHOCYTES % (AUTO) 8.5 % (21-51); MEAN CORPUSCULAR HEMOGLOBIN 31.4 PG (27.0-31.0); MEAN CORPUSCULAR HGB CONC 33.1 g/dL (33.0-36.5); MEAN PLATELET VOLUME 9.4 FL (7.4-10.4); MONOCYTES # (AUTO) 0.4 X10'3 (0-0.9); MONOCYTES % (AUTO) 6.8 % (2-12); NEUTROPHILS # (AUTO) 4.5 X10'3 (1.8-7.7); NEUTROPHILS % (AUTO) 83.6 % (42-75); PLATELET COUNT 114 X10'3 (140-440); RED BLOOD COUNT 5.05 X10'6 (4.70-6.10); RED CELL DISTRIBUTION WIDTH 14.6 % (11.5-14.5); WHITE BLOOD COUNT 5.3 X10'3 (4.5-11.0)
[2023-04-17 02:39] LABS: ALANINE AMINOTRANSFERASE 76 U/L (12-78); ALBUMIN 2.6 G/DL (3.4-5.0); ALBUMIN/GLOBULIN RATIO 0.8 (1.1-1.5); ALKALINE PHOSPHATASE 388 IU/L (46-116); ANION GAP 9 (8-16); ASPARTATE AMINO TRANSFERASE 354 U/L (10-37); BILIRUBIN,TOTAL 1.8 MG/DL (0.1-1.0); BLOOD UREA NITROGEN 8 MG/DL (7-18); CHLORIDE 100 MMOL/L (99-107); GLUCOSE 124 MG/DL (70-104); LIPASE 13 U/L (16-77); SODIUM 141 MMOL/L (135-145); TOTAL CARBON DIOXIDE 31.7 MMOL/L (24-32); TOTAL PROTEIN 5.8 G/DL (6.4-8.2); eGFR 73 ML/MIN
[2023-04-17 02:42] LABS: POTASSIUM 2.1 MMOL/L (3.5-5.1)
[2023-04-17] MEDS ORDERED: iohexol 300mg/ml 100ml inj. ONE (03:06)
[2023-04-17] MEDS: potassium Cl 20 mEq SR tablet PO STA (03:43)
[2023-04-17] MEDS: potassium CL 10mEq/100ml bag 100 ML IV SCH (03:59)
[2023-04-17] MEDS: magnesium 2GM in 50ml NS 50 ML IV ONE (03:59)
[2023-04-17] MEDS: ipratropium/albuterol 3ml nebule NEB ONE (05:14)
[2023-04-17] MEDS ORDERED: magnesium Cl slow-release 64mg tablet PO PRN (05:35)
[2023-04-17] MEDS ORDERED: magnesium hydroxide 30ml (MOM) UD suspension PO PRN (05:35)
[2023-04-17] MEDS ORDERED: acetaminophen 325mg tablet PO PRN (05:35)
[2023-04-17] MEDS ORDERED: magnesium 2GM in 50ml NS 50 ML IV PRN (05:35)
[2023-04-17] MEDS ORDERED: magnesium 4gm in 100ml NS 100 ML IV PRN (05:35)
[2023-04-17] MEDS: normal saline 1000ml 1,000 ML IV SCH (05:49)
[2023-04-17 06:08] LABS: BILIRUBIN,URINE NEGATIVE (Neg); CLARITY,URINE CLEAR (Clear); COLOR,URINE YELLOW (Yellow); GLUCOSE, URINE NEGATIVE (Neg); KETONES,URINE NEGATIVE (Neg); LEUKOCYTE ESTERASE ,URINE NEGATIVE (Neg); NITRITES, URINE NEGATIVE (Neg); OCCULT BLOOD,URINE NEGATIVE (Neg); PH,URINE 7.5 (4.8-8.0); PROTEIN,URINE NEGATIVE (Neg)
[2023-04-17 06:09] LABS: UA COLLECTION TYPE CLN CATCH MIDSTREAM
[2023-04-17 07:43] LABS: HEMOGLOBIN A1C 4.9 % (4.5-6.2)
[2023-04-17 07:51] LABS: CHOLESTEROL 124 MG/DL (0-200); HDL CHOLESTEROL 63 MG/DL (35-60); LDL CHOLESTEROL 40 MG/DL (50-100); PRO BRAIN NATRIURETIC PEPTIDE 778 PG/ML (0-125); TRIGLYCERIDES 78 MG/DL (20-135)
[2023-04-17] MEDS: piperacillin/tazo 3.375gm/50ml 50 ML IV SCH (08:24)
[2023-04-17] MEDS: docusate sod 100mg capsule PO SCH (08:24)
[2023-04-17] MEDS: enoxaparin 40mg/0.4ml syringe SUBCUT SCH (08:25)
[2023-04-17 10:57] LABS: ALANINE AMINOTRANSFERASE 123 U/L (12-78); ALBUMIN 2.4 G/DL (3.4-5.0); ALBUMIN/GLOBULIN RATIO 0.8 (1.1-1.5); ALKALINE PHOSPHATASE 424 IU/L (46-116); ANION GAP 10 (8-16); ASPARTATE AMINO TRANSFERASE 540 U/L (10-37); BILIRUBIN,TOTAL 3.2 MG/DL (0.1-1.0); BLOOD UREA NITROGEN 8 MG/DL (7-18); BUN/CREATININE RATIO 8.3 (10.0-20.0); CALCIUM 8.1 MG/DL (8.5-10.1); CHLORIDE 104 MMOL/L (99-107); CREATININE 0.96 MG/DL (0.60-1.10); GLUCOSE 100 MG/DL (70-104); SODIUM 144 MMOL/L (135-145); TOTAL CARBON DIOXIDE 29.8 MMOL/L (24-32); TOTAL PROTEIN 5.3 G/DL (6.4-8.2); eCRCL 67 ML/MIN; eGFR 77 ML/MIN
[2023-04-17 11:00] LABS: POTASSIUM 2.8 MMOL/L (3.5-5.1)
[2023-04-17] MEDS: K and/or MAG REPLACEMENT MC SCH (12:29)
[2023-04-17] MEDS: potassium Cl 40MEQ/1/2NS 520ml 520 ML IV PRN (12:41)
[2023-04-17] MEDS: budesonide 0.5mg/2ml UD nebule IH SCH (19:28)
[2023-04-17] MEDS: ipratropium/albuterol 3ml nebule NEB PRN (19:29)
[2023-04-17] MEDS: ondansetron/PF 4mg/2ml inj IV PRN (20:32)
[2023-04-17] MEDS: morphine 2 MG/ML inj. syringe IV PRN (23:01)
[2023-04-18] VITALS (9 sets, daily range): BP systolic 132–150; BP diastolic 80–85; PULSE 57–68; RESP 16–17; TEMP 97.6–98.7; O2SAT 80–98
[2023-04-18 04:44] LABS: MAGNESIUM 1.7 MG/DL (1.5-2.4); POTASSIUM 3.2 MMOL/L (3.5-5.1)
[2023-04-18] MEDS: losartan 50mg tablet PO SCH (07:52)
[2023-04-18] MEDS: sertraline 50mg tablet PO SCH (07:52)
[2023-04-18] MEDS: potassium Cl 20 mEq SR tablet PO PRN ×2 (08:00→20:39)
[2023-04-18] MEDS ORDERED: NORMAL SALINE IV ONE (11:05)
[2023-04-18] MEDS ORDERED: SINCALIDE IV ONE (11:05)
[2023-04-18] MEDS: SINCALIDE IV ONE (11:31)
[2023-04-18] MEDS: NORMAL SALINE IV ONE (11:31)
[2023-04-18] MEDS: FLU VACC QS2023-24(6MOS UP)/PF 60 MCG/0.5 ML SYRINGE IM ONE (16:31)
[2023-04-18] MEDS: pneumococcal 23-VAL P-sac vacc 25 mcg/0.5ml vial IMVAC ONE (16:36)
[2023-04-18 19:43] LABS: EOSINOPHILS # (AUTO) 0.1 X10'3 (0-0.9); HEMOGLOBIN 14.6 g/dl (14.0-17.9); LYMPHOCYTES # (AUTO) 0.6 X10'3 (1.1-4.8); MONOCYTES # (AUTO) 0.4 X10'3 (0-0.9); NEUTROPHILS # (AUTO) 2.7 X10'3 (1.8-7.7); RED CELL DISTRIBUTION WIDTH 14.8 % (11.5-14.5); WHITE BLOOD COUNT 3.9 X10'3 (4.5-11.0)
[2023-04-18 19:45] LABS: BASOPHILS % (AUTO) 0.6 % (0-1); EOSINOPHILS % (AUTO) 3.5 % (0-6); HEMATOCRIT 44.5 % (42.0-52.0); LYMPHOCYTES % (AUTO) 16.2 % (21-51); MEAN CORPUSCULAR HEMOGLOBIN 31.4 PG (27.0-31.0); MEAN CORPUSCULAR HGB CONC 32.9 g/dL (33.0-36.5); MEAN CORPUSCULAR VOLUME 95.6 FL (78-98); MEAN PLATELET VOLUME 9.7 FL (7.4-10.4); MONOCYTES % (AUTO) 9.9 % (2-12); NEUTROPHILS % (AUTO) 69.8 % (42-75); PLATELET COUNT 91 X10'3 (140-440); RED BLOOD COUNT 4.65 X10'6 (4.70-6.10)
[2023-04-18 20:09] LABS: ALANINE AMINOTRANSFERASE 125 U/L (12-78); ALBUMIN 2.2 G/DL (3.4-5.0); ALBUMIN/GLOBULIN RATIO 0.7 (1.1-1.5); ALKALINE PHOSPHATASE 304 IU/L (46-116); ANION GAP 6 (8-16); ASPARTATE AMINO TRANSFERASE 223 U/L (10-37); BILIRUBIN,TOTAL 1.8 MG/DL (0.1-1.0); BLOOD UREA NITROGEN 11 MG/DL (7-18); BUN/CREATININE RATIO 9.9 (10.0-20.0); CALCIUM 7.5 MG/DL (8.5-10.1); CHLORIDE 106 MMOL/L (99-107); CREATININE 1.11 MG/DL (0.60-1.10); GLUCOSE 96 MG/DL (70-104); POTASSIUM 3.6 MMOL/L (3.5-5.1); SODIUM 140 MMOL/L (135-145); TOTAL CARBON DIOXIDE 27.7 MMOL/L (24-32); TOTAL PROTEIN 5.3 G/DL (6.4-8.2); eCRCL 58 ML/MIN; eGFR 65 ML/MIN
[2023-04-19] VITALS (9 sets, daily range): BP systolic 141–163; BP diastolic 81–87; PULSE 58–70; RESP 15–18; TEMP 97.3–98.3; O2SAT 96–98
[2023-04-19 05:55] LABS: MAGNESIUM 1.8 MG/DL (1.5-2.4); POTASSIUM 3.8 MMOL/L (3.5-5.1)
[2023-04-19] MEDS: sertraline 25mg tablet PO SCH (12:13)
[2023-04-19] MEDS ORDERED: FURO-150 PO (17:31)
[2023-04-19] MEDS ORDERED: ALBU18HF2 INH (17:31)
[2023-04-19] MEDS ORDERED: IPRA3AMP9 NEB (17:31)
[2023-04-19] MEDS ORDERED: ACET-1025 PO (17:31)
[2023-04-19] MEDS ORDERED: DOCU-148 PO (17:31)
[2023-04-20] VITALS (21 sets, daily range): BP systolic 91–177; BP diastolic 49–97; PULSE 59–89; RESP 12–20; TEMP 97.3–98.1; O2SAT 67–99
[2023-04-20 06:30] LABS: RED BLOOD COUNT 4.45 X10'6 (4.70-6.10); RED CELL DISTRIBUTION WIDTH 14.4 % (11.5-14.5)
[2023-04-20 06:32] LABS: BASOPHILS % (AUTO) 1.1 % (0-1); EOSINOPHILS # (AUTO) 0.2 X10'3 (0-0.9); EOSINOPHILS % (AUTO) 4.2 % (0-6); HEMATOCRIT 42.4 % (42.0-52.0); HEMOGLOBIN 13.9 g/dl (14.0-17.9); LYMPHOCYTES # (AUTO) 0.7 X10'3 (1.1-4.8); LYMPHOCYTES % (AUTO) 17.4 % (21-51); MEAN CORPUSCULAR HEMOGLOBIN 31.2 PG (27.0-31.0); MEAN CORPUSCULAR HGB CONC 32.7 g/dL (33.0-36.5); MEAN CORPUSCULAR VOLUME 95.3 FL (78-98); MEAN PLATELET VOLUME 9.2 FL (7.4-10.4); MONOCYTES # (AUTO) 0.5 X10'3 (0-0.9); MONOCYTES % (AUTO) 12.4 % (2-12); NEUTROPHILS # (AUTO) 2.5 X10'3 (1.8-7.7); NEUTROPHILS % (AUTO) 64.9 % (42-75); PLATELET COUNT 106 X10'3 (140-440); WHITE BLOOD COUNT 3.8 X10'3 (4.5-11.0)
[2023-04-20 06:56] LABS: ALANINE AMINOTRANSFERASE 91 U/L (12-78); ALBUMIN 2.1 G/DL (3.4-5.0); ALBUMIN/GLOBULIN RATIO 0.7 (1.1-1.5); ALKALINE PHOSPHATASE 296 IU/L (46-116); ANION GAP 9 (8-16); ASPARTATE AMINO TRANSFERASE 104 U/L (10-37); BILIRUBIN,TOTAL 1.2 MG/DL (0.1-1.0); BLOOD UREA NITROGEN 6 MG/DL (7-18); BUN/CREATININE RATIO 6.9 (10.0-20.0); CALCIUM 7.6 MG/DL (8.5-10.1); CHLORIDE 107 MMOL/L (99-107); CREATININE 0.87 MG/DL (0.60-1.10); GLUCOSE 73 MG/DL (70-104); MAGNESIUM 1.6 MG/DL (1.5-2.4); POTASSIUM 3.3 MMOL/L (3.5-5.1); SODIUM 139 MMOL/L (135-145); TOTAL CARBON DIOXIDE 23.1 MMOL/L (24-32); TOTAL PROTEIN 5.1 G/DL (6.4-8.2); eCRCL 74 ML/MIN; eGFR 86 ML/MIN
[2023-04-20] MEDS ORDERED: potassium cl 20mEq in 1/2 NS 1,000 ML IV PRN (08:50)
[2023-04-20] MEDS ORDERED: potassium Cl 20 mEq SR tablet PO PRN (10:15)
[2023-04-20] MEDS ORDERED: magnesium Cl slow-release 64mg tablet PO PRN (10:15)
[2023-04-20] MEDS ORDERED: magnesium 4gm in 100ml NS 100 ML IV PRN (10:15)
[2023-04-20] MEDS ORDERED: magnesium 2GM in 50ml NS 50 ML IV PRN (10:15)
[2023-04-20] MEDS ORDERED: SUCR1TAB PO (11:11)
[2023-04-20] MEDS ORDERED: MECO10005 PO (11:11)
[2023-04-20] MEDS ORDERED: IPRA3AMP9 NEB (11:11)
[2023-04-20] MEDS ORDERED: LACTC PO (11:11)
[2023-04-20] MEDS ORDERED: LOSA-416 PO (11:11)
[2023-04-20] MEDS ORDERED: LIDO700A32 TOP (11:11)
[2023-04-20] MEDS ORDERED: ROSU10TA2 PO (11:11)
[2023-04-20] MEDS ORDERED: THIA50TA10 PO (11:11)
[2023-04-20] MEDS ORDERED: SERT25TA PO (11:11)
[2023-04-20] MEDS: potassium Cl 40MEQ/1/2NS 520ml 520 ML IV PRN (11:26)
[2023-04-20] MEDS ORDERED: fentaNYL/PF 50MCG/1 ML 2ML syringe IV PRN ×2 (13:20)
[2023-04-20] MEDS ORDERED: enalaprilat dihydrate 2.5mg/2ml vial IV PRN (13:20)
[2023-04-20] MEDS ORDERED: morphine 4 MG/ML inj SYRINge IV PRN (13:20)
[2023-04-20] MEDS: ringers solution, lacted 1,000 ML IV SCH (13:20)
[2023-04-20] MEDS ORDERED: hydrALAZINE 20mg/ml inj. IV PRN (13:20)
[2023-04-20] MEDS: morphine 2 MG/ML inj. syringe IV PRN (15:25)
[2023-04-20] MEDS ORDERED: ipratropium/albuterol 3ml nebule NEB PRN (16:10)
[2023-04-20] MEDS ORDERED: BUPIVAcaine 2.5mg/ml inj 50ml vial (contains preservative) ONE (17:10)
[2023-04-20] MEDS ORDERED: INDOCYANINE GREEN 25 MG/10 ML VIAL IV ONE (17:30)
[2023-04-20] MEDS: INDOCYANINE GREEN 25 MG/10 ML VIAL IV ONE (17:44)
[2023-04-20] MEDS ORDERED: ondansetron/PF 4mg/2ml inj ONE (17:49)
[2023-04-20] MEDS ORDERED: rocuronium 10mg/ml inj IV ONE (17:49)
[2023-04-20] MEDS ORDERED: propofol inj 20 ML IV ONE (17:50)
[2023-04-20] MEDS ORDERED: LIDOcaine 2% (20mg/ml) 5ml vial ONE (17:50)
[2023-04-20] MEDS ORDERED: fentaNYL/PF 50MCG/1 ML 2ML syringe ONE (17:52)
[2023-04-20] MEDS ORDERED: midazolam 1 mg/ML 2ml injection ONE (17:53)
[2023-04-20] MEDS: ondansetron/PF 4mg/2ml inj IV PRN ×2 (18:10→22:00)
[2023-04-20] MEDS ORDERED: neostigmine methylsulfate 1 MG/ML 10ml vial ONE (18:55)
[2023-04-20] MEDS ORDERED: glycopyrrolate 0.2mg/ml inj ONE (18:55)
[2023-04-20] MEDS ORDERED: dexamethasone sod phosphate 10mg/ml inj ONE (18:55)
[2023-04-20] MEDS ORDERED: desflurane 240ml liquid inh. IH ONE (18:55)
[2023-04-20] MEDS ORDERED: albumin (Human) 5% 250ml 250 ML IV ONE (19:13)
[2023-04-20] MEDS ORDERED: labetalol 20mg/4ml (5mg/ml) syringe IV ONE (19:44)
[2023-04-20] MEDS: BUPIVAcaine 2.5mg/ml inj 50ml vial (contains preservative) IJ ONE (19:45)
[2023-04-20] MEDS ORDERED: sugammadex 200mg/2ml injection IV ONE (19:45)
[2023-04-20] MEDS ORDERED: hydrALAZINE 20mg/ml inj. IV ONE (19:48)
[2023-04-20] MEDS ORDERED: albuterol 2.5 MG/3 ML nebule NEB PRN (20:00)
[2023-04-20 21:14] LABS: BASOPHILS % (AUTO) 0.6 % (0-1); EOSINOPHILS % (AUTO) 0.6 % (0-6); HEMATOCRIT 46.4 % (42.0-52.0); LYMPHOCYTES # (AUTO) 0.5 X10'3 (1.1-4.8); LYMPHOCYTES % (AUTO) 6.8 % (21-51); MEAN CORPUSCULAR HEMOGLOBIN 31.3 PG (27.0-31.0); MEAN CORPUSCULAR HGB CONC 32.4 g/dL (33.0-36.5); MEAN CORPUSCULAR VOLUME 96.5 FL (78-98); MEAN PLATELET VOLUME 9.5 FL (7.4-10.4); MONOCYTES # (AUTO) 0.2 X10'3 (0-0.9); MONOCYTES % (AUTO) 3.4 % (2-12); NEUTROPHILS % (AUTO) 88.6 % (42-75); PLATELET COUNT 164 X10'3 (140-440); RED BLOOD COUNT 4.81 X10'6 (4.70-6.10); RED CELL DISTRIBUTION WIDTH 14.8 % (11.5-14.5); WHITE BLOOD COUNT 6.7 X10'3 (4.5-11.0)
[2023-04-20 21:16] LABS: ALANINE AMINOTRANSFERASE 105 U/L (12-78); ALBUMIN 2.7 G/DL (3.4-5.0); ALBUMIN/GLOBULIN RATIO 0.8 (1.1-1.5); ALKALINE PHOSPHATASE 444 IU/L (46-116); ANION GAP 13 (8-16); BILIRUBIN,TOTAL 3.9 MG/DL (0.1-1.0); BLOOD UREA NITROGEN 5 MG/DL (7-18); BUN/CREATININE RATIO 5.6 (10.0-20.0); CHLORIDE 106 MMOL/L (99-107); GLUCOSE 88 MG/DL (70-104); SODIUM 139 MMOL/L (135-145); TOTAL CARBON DIOXIDE 20.3 MMOL/L (24-32); TOTAL PROTEIN 5.9 G/DL (6.4-8.2); eCRCL 72 ML/MIN; eGFR 83 ML/MIN
[2023-04-20 21:26] LABS: ASPARTATE AMINO TRANSFERASE 176 U/L (10-37); POTASSIUM 4.5 MMOL/L (3.5-5.1)
[2023-04-20] MEDS: mag hydrox/Alum hydrox/simeth 30ml oral suspension PO PRN (21:28)
[2023-04-20] MEDS: K and/or MAG REPLACEMENT MC SCH (22:04)
[2023-04-20] MEDS: HYDROmorphone inj. 0.5 MG/0.5 ML DISP.SYRIN IV PRN (23:52)
[2023-04-21] VITALS (10 sets, daily range): BP systolic 124–173; BP diastolic 72–94; PULSE 76–86; RESP 16–18; TEMP 97.2–98.5; O2SAT 94–98
[2023-04-21 06:42] LABS: BASOPHILS % (AUTO) 0.1 % (0-1); EOSINOPHILS % (AUTO) 0 % (0-6); HEMOGLOBIN 15.9 g/dl (14.0-17.9); LYMPHOCYTES # (AUTO) 0.3 X10'3 (1.1-4.8); MEAN CORPUSCULAR HEMOGLOBIN 31.2 PG (27.0-31.0); MEAN CORPUSCULAR HGB CONC 31.7 g/dL (33.0-36.5); MEAN CORPUSCULAR VOLUME 98.3 FL (78-98); MEAN PLATELET VOLUME 9.7 FL (7.4-10.4); MONOCYTES # (AUTO) 0.4 X10'3 (0-0.9); MONOCYTES % (AUTO) 5.2 % (2-12); NEUTROPHILS # (AUTO) 6.7 X10'3 (1.8-7.7); NEUTROPHILS % (AUTO) 90.7 % (42-75); PLATELET COUNT 146 X10'3 (140-440); RED BLOOD COUNT 5.09 X10'6 (4.70-6.10); RED CELL DISTRIBUTION WIDTH 15.4 % (11.5-14.5); WHITE BLOOD COUNT 7.4 X10'3 (4.5-11.0)
[2023-04-21 07:09] LABS: ALANINE AMINOTRANSFERASE 100 U/L (12-78); ALBUMIN 2.7 G/DL (3.4-5.0); ALBUMIN/GLOBULIN RATIO 0.8 (1.1-1.5); ALKALINE PHOSPHATASE 407 IU/L (46-116); ANION GAP 21 (8-16); ASPARTATE AMINO TRANSFERASE 108 U/L (10-37); BILIRUBIN,TOTAL 1.9 MG/DL (0.1-1.0); BLOOD UREA NITROGEN 9 MG/DL (7-18); BUN/CREATININE RATIO 9.8 (10.0-20.0); CALCIUM 8.1 MG/DL (8.5-10.1); CHLORIDE 104 MMOL/L (99-107); CREATININE 0.92 MG/DL (0.60-1.10); GLUCOSE 123 MG/DL (70-104); MAGNESIUM 1.9 MG/DL (1.5-2.4); POTASSIUM 4.1 MMOL/L (3.5-5.1); SODIUM 140 MMOL/L (135-145); TOTAL CARBON DIOXIDE 15.3 MMOL/L (24-32); TOTAL PROTEIN 6.2 G/DL (6.4-8.2); eCRCL 70 ML/MIN; eGFR 81 ML/MIN
[2023-04-21] MEDS: furosemide 20MG tablet PO SCH (08:00)
[2023-04-21] MEDS: atorvastatin 10mg tablet PO SCH (09:53)
[2023-04-21] MEDS: folic acid 0.4mg tablet PO SCH (09:54)
[2023-04-21] MEDS: sertraline 50mg tablet PO SCH (09:56)
[2023-04-21] MEDS: thiamine 100mg tablet PO SCH (09:56)
[2023-04-21] MEDS: pantoprazole 40mg Tablet.DR PO SCH (09:56)
[2023-04-21] MEDS ORDERED: metoclopramide 5 mg/ml inj IV PRN (13:40)
[2023-04-21] MEDS: metoclopramide 5 mg/ml inj IV SCH (18:54)
[2023-04-21] MEDS: HYDROcodone/acetaminophen 10/325mg tab PO PRN (18:59)
[2023-04-22] VITALS (9 sets, daily range): BP systolic 131–177; BP diastolic 68–89; PULSE 63–71; RESP 14–18; TEMP 97.2–98.7; O2SAT 93–98
[2023-04-22 06:18] LABS: BASOPHILS % (AUTO) 0.5 % (0-1); EOSINOPHILS % (AUTO) 0.6 % (0-6); HEMATOCRIT 41.3 % (42.0-52.0); HEMOGLOBIN 13.4 g/dl (14.0-17.9); LYMPHOCYTES # (AUTO) 0.7 X10'3 (1.1-4.8); LYMPHOCYTES % (AUTO) 12.1 % (21-51); MEAN CORPUSCULAR HEMOGLOBIN 31.2 PG (27.0-31.0); MEAN CORPUSCULAR HGB CONC 32.5 g/dL (33.0-36.5); MEAN PLATELET VOLUME 9.2 FL (7.4-10.4); MONOCYTES # (AUTO) 0.7 X10'3 (0-0.9); MONOCYTES % (AUTO) 11.5 % (2-12); NEUTROPHILS # (AUTO) 4.3 X10'3 (1.8-7.7); NEUTROPHILS % (AUTO) 75.3 % (42-75); PLATELET COUNT 141 X10'3 (140-440); RED CELL DISTRIBUTION WIDTH 14.8 % (11.5-14.5); WHITE BLOOD COUNT 5.8 X10'3 (4.5-11.0)
[2023-04-22 07:02] LABS: ALANINE AMINOTRANSFERASE 82 U/L (12-78); ALBUMIN 2.1 G/DL (3.4-5.0); ALBUMIN/GLOBULIN RATIO 0.8 (1.1-1.5); ALKALINE PHOSPHATASE 377 IU/L (46-116); ANION GAP 7 (8-16); ASPARTATE AMINO TRANSFERASE 91 U/L (10-37); BLOOD UREA NITROGEN 11 MG/DL (7-18); BUN/CREATININE RATIO 10.3 (10.0-20.0); CHLORIDE 109 MMOL/L (99-107); CREATININE 1.07 MG/DL (0.60-1.10); GLUCOSE 93 MG/DL (70-104); POTASSIUM 3.3 MMOL/L (3.5-5.1); SODIUM 141 MMOL/L (135-145); TOTAL CARBON DIOXIDE 25.1 MMOL/L (24-32); TOTAL PROTEIN 4.9 G/DL (6.4-8.2); eCRCL 60 ML/MIN; eGFR 68 ML/MIN
[2023-04-22] MEDS: folic acid 1mg tablet PO SCH (08:13)
[2023-04-22] MEDS: sertraline 25mg tablet PO SCH (08:13)
[2023-04-22] MEDS: potassium Cl 20 mEq SR tablet PO PRN (17:54)
[2023-04-22] MEDS ORDERED: NUT.TX.IMPAIRED DIGEST FXN (Ensure Clear) 237 ML PO SCH (18:00)
[2023-04-23 06:00] VITALS: BP 146/89; PULSE 67; RESP 13; TEMP 98.8; O2SAT 95
[2023-04-23 07:30] LABS: BASOPHILS % (AUTO) 0.8 % (0-1); EOSINOPHILS # (AUTO) 0.1 X10'3 (0-0.9); EOSINOPHILS % (AUTO) 2.1 % (0-6); HEMATOCRIT 42.4 % (42.0-52.0); HEMOGLOBIN 13.5 g/dl (14.0-17.9); LYMPHOCYTES # (AUTO) 0.8 X10'3 (1.1-4.8); LYMPHOCYTES % (AUTO) 16.3 % (21-51); MEAN CORPUSCULAR HEMOGLOBIN 30.8 PG (27.0-31.0); MEAN CORPUSCULAR HGB CONC 31.9 g/dL (33.0-36.5); MEAN CORPUSCULAR VOLUME 96.4 FL (78-98); MEAN PLATELET VOLUME 9.6 FL (7.4-10.4); MONOCYTES # (AUTO) 0.5 X10'3 (0-0.9); MONOCYTES % (AUTO) 11.4 % (2-12); NEUTROPHILS # (AUTO) 3.3 X10'3 (1.8-7.7); NEUTROPHILS % (AUTO) 69.4 % (42-75); PLATELET COUNT 146 X10'3 (140-440); WHITE BLOOD COUNT 4.8 X10'3 (4.5-11.0)
[2023-04-23 07:46] LABS: ALANINE AMINOTRANSFERASE 65 U/L (12-78); ALBUMIN 1.9 G/DL (3.4-5.0); ALBUMIN/GLOBULIN RATIO 0.6 (1.1-1.5); ALKALINE PHOSPHATASE 322 IU/L (46-116); ANION GAP 5 (8-16); ASPARTATE AMINO TRANSFERASE 45 U/L (10-37); BILIRUBIN,TOTAL 1.1 MG/DL (0.1-1.0); BLOOD UREA NITROGEN 11 MG/DL (7-18); BUN/CREATININE RATIO 15.1 (10.0-20.0); CALCIUM 9.1 MG/DL (8.5-10.1); CHLORIDE 110 MMOL/L (99-107); CREATININE 0.73 MG/DL (0.60-1.10); GLUCOSE 105 MG/DL (70-104); POTASSIUM 3.6 MMOL/L (3.5-5.1); SODIUM 143 MMOL/L (135-145); TOTAL PROTEIN 5.3 G/DL (6.4-8.2); eCRCL 89 ML/MIN; eGFR > 90 ML/MIN
[2023-04-23 10:00] VITALS: BP 131/73; PULSE 69; RESP 16; TEMP 98.1; O2SAT 95
[2023-04-23] MEDS ORDERED: LACT1CAP26 PO (12:16)
== END 2023-04-23 14:20 | disposition home or self-care (01) | DRG 418 ==
LOC: ER 00:31 → ED HOLD 05:39 → ORTHO 4S 21:50
PROVIDERS: ADMIT Internal Medicine; ATTEND Internal Medicine
PROC: CF141ZZ Planar Nuclear Medicine Imaging of Gallbladder using Technetium 99m (Tc-99m) (ICD-10-PCS; 2023-04-18)
PROC: 8E0W4CZ Robotic Assisted Procedure of Trunk Region, Percutaneous Endoscopic Approach (ICD-10-PCS; 2023-04-20)
PROC: 0DNW4ZZ Release Peritoneum, Percutaneous Endoscopic Approach (ICD-10-PCS; 2023-04-20)
PROC: 0FT44ZZ Resection of Gallbladder, Percutaneous Endoscopic Approach (ICD-10-PCS; principal; 2023-04-20 18:55)
DX: K80.00 Calculus of gallbladder with acute cholecystitis without obstruction (principal); I50.32 Chronic diastolic (congestive) heart failure; E87.6 Hypokalemia; E78.00 Pure hypercholesterolemia, unspecified; I11.0 Hypertensive heart disease with heart failure; I25.10 Atherosclerotic heart disease of native coronary artery without angina pectoris; I25.2 Old myocardial infarction; I35.9 Nonrheumatic aortic valve disorder, unspecified; I50.9 Heart failure, unspecified; J44.9 Chronic obstructive pulmonary disease, unspecified; K66.0 Peritoneal adhesions (postprocedural) (postinfection); K80.12 Calculus of gallbladder with acute and chronic cholecystitis without obstruction; E78.5 Hyperlipidemia, unspecified; K82.8 Other specified diseases of gallbladder; Z87.891 Personal history of nicotine dependence; Z95.1 Presence of aortocoronary bypass graft; Z95.3 Presence of xenogenic heart valve; Z79.01 Long term (current) use of anticoagulants; Z79.899 Other long term (current) drug therapy
CPT/HCPCS: 36415; 74177; 74181; 76700; 78227; 80053; 80061; 81003; 82948; 83036; 83605; 83690; 83735; 83880; 84132; 84145; 85025; 87040; 87081; 93005; 94640; 94760; 99285; A4215; A4618; A6258; A6402; A6449; A7000; A9537; G0378; J0360; J1100; J1170; J1650; J2250; J2270; J2405; J2543; J2704; J2710; J2765; J2805; J3010; J3475; J3480; J3490; J7030; J7120; P9045; Q9967

== ENCOUNTER 2024-01-23 17:32 | Inpatient (IN) | payer MEDICARE, OTHER ==
[~2024-01-23] VITALS: Ht 154.9 cm; Wt 61.6 kg
[~2024-01-23 17:32] MED LIST changes: -ACET-1008 PO; +ALBU18HF2 INH; -ALBU8.5H17 IH; -AMYL1CAP57 PO; -ATOR40TA72 PO; -DIPH-629 PO; -FLO110IN PO; +IPRA3AMP9 NEB; +LACT1CAP26 PO; +LACTC PO; +LOSA-416 PO; -MAGN250T29 PO; +MECO10005 PO; -OLME20TA69 PO; -POTA-205 PO; +ROSU10TA2 PO; -SERT-432 PO; +SERT25TA PO; +SUCR1TAB PO; +THIA50TA10 PO
[2024-01-23 18:29] LABS: BASOPHILS # (AUTO) 0.1 X10'3 (0-0.2); BASOPHILS % (AUTO) 1.2 % (0-1); EOSINOPHILS % (AUTO) 0.7 % (0-6); HEMATOCRIT 35.9 % (42.0-52.0); LYMPHOCYTES # (AUTO) 0.9 X10'3 (1.1-4.8); LYMPHOCYTES % (AUTO) 18.9 % (21-51); MEAN CORPUSCULAR HEMOGLOBIN 36.1 PG (27.0-31.0); MEAN CORPUSCULAR HGB CONC 33.3 g/dL (33.0-36.5); MEAN CORPUSCULAR VOLUME 108.5 FL (78-98); MEAN PLATELET VOLUME 9.3 FL (7.4-10.4); MONOCYTES # (AUTO) 0.6 X10'3 (0-0.9); MONOCYTES % (AUTO) 11.9 % (2-12); NEUTROPHILS # (AUTO) 3.1 X10'3 (1.8-7.7); NEUTROPHILS % (AUTO) 67.3 % (42-75); PLATELET COUNT 143 X10'3 (140-440); RED BLOOD COUNT 3.31 X10'6 (4.70-6.10); RED CELL DISTRIBUTION WIDTH 15.9 % (11.5-14.5); WHITE BLOOD COUNT 4.6 X10'3 (4.5-11.0)
[2024-01-23 18:52] LABS: ALANINE AMINOTRANSFERASE 64 U/L (12-78); ALBUMIN 2.4 G/DL (3.4-5.0); ALBUMIN/GLOBULIN RATIO 0.7 (1.1-1.5); ALKALINE PHOSPHATASE 316 IU/L (46-116); ANION GAP 4 (8-16); ASPARTATE AMINO TRANSFERASE 180 U/L (10-37); BLOOD UREA NITROGEN 13 MG/DL (7-18); BUN/CREATININE RATIO 11.9 (10.0-20.0); CALCIUM 8.7 MG/DL (8.5-10.1); CHLORIDE 102 MMOL/L (99-107); CREATININE 1.09 MG/DL (0.60-1.10); GLUCOSE 102 MG/DL (70-104); POTASSIUM 3.7 MMOL/L (3.5-5.1); PRO BRAIN NATRIURETIC PEPTIDE 1822 PG/ML (0-125); SODIUM 139 MMOL/L (135-145); TOTAL CARBON DIOXIDE 32.6 MMOL/L (24-32); eCRCL 53 ML/MIN; eGFR 66 ML/MIN
[2024-01-23 20:48] LABS: MAGNESIUM 1.5 MG/DL (1.5-2.4)
[2024-01-23 20:52] LABS: APTT 24 SECONDS (22-32); ETHANOL < 10 MG/DL (<10); INR 1.1 INR; PROTHROMBIN TIME 11.2 SECONDS (9.0-12.0)
[2024-01-23] MEDS: ipratropium/albuterol 3ml nebule NEB ONE (21:19)
[2024-01-23 21:21] VITALS: PULSE 73; RESP 18; O2SAT 100
[2024-01-23] MEDS: methylPREDNISolone sod succ 125mg/2ml vial IV ONE (21:25)
[2024-01-23] MEDS: carVEDilol 3.125mg tablet PO ONE (21:25)
[2024-01-23 21:30] VITALS: PULSE 74; RESP 18; O2SAT 100
[2024-01-23] MEDS ORDERED: AMLO2.5T2 PO (21:50)
[2024-01-23] MEDS ORDERED: LORA10TA7 PO (21:50)
[2024-01-23] MEDS ORDERED: FLUT16SP BOTHNARES (21:50)
[2024-01-23] MEDS ORDERED: MAGN400C PO (21:50)
[2024-01-23] MEDS ORDERED: magnesium sulf-water 4G/100mL 100 ML IV PRN (22:15)
[2024-01-23] MEDS ORDERED: ondansetron/PF 4mg/2ml inj IV PRN (22:15)
[2024-01-23] MEDS ORDERED: potassium Cl 20 mEq SR tablet PO PRN (22:15)
[2024-01-23] MEDS ORDERED: potassium Cl 40MEQ/1/2NS 520ml 520 ML IV PRN (22:15)
[2024-01-23] MEDS ORDERED: acetaminophen 325mg tablet PO PRN (22:15)
[2024-01-23] MEDS ORDERED: ipratropium/albuterol 3ml nebule NEB PRN (22:20)
[2024-01-23] MEDS ORDERED: albuterol 2.5 MG/3 ML nebule NEB PRN (22:30)
[2024-01-23] MEDS: furosemide 10 MG/1 ML 10ml inj IV ONE (22:31)
[2024-01-24 02:40] LABS: BASOPHILS % (AUTO) 0.4 % (0-1); EOSINOPHILS % (AUTO) 0.1 % (0-6); HEMATOCRIT 33.6 % (42.0-52.0); HEMOGLOBIN 11.4 g/dl (14.0-17.9); LYMPHOCYTES # (AUTO) 0.4 X10'3 (1.1-4.8); LYMPHOCYTES % (AUTO) 13.1 % (21-51); MEAN CORPUSCULAR HEMOGLOBIN 37.2 PG (27.0-31.0); MEAN CORPUSCULAR HGB CONC 33.8 g/dL (33.0-36.5); MEAN PLATELET VOLUME 9.5 FL (7.4-10.4); MONOCYTES # (AUTO) 0.1 X10'3 (0-0.9); MONOCYTES % (AUTO) 2.7 % (2-12); NEUTROPHILS # (AUTO) 2.4 X10'3 (1.8-7.7); NEUTROPHILS % (AUTO) 83.7 % (42-75); PLATELET COUNT 104 X10'3 (140-440); RED BLOOD COUNT 3.06 X10'6 (4.70-6.10); RED CELL DISTRIBUTION WIDTH 15.9 % (11.5-14.5); WHITE BLOOD COUNT 2.9 X10'3 (4.5-11.0)
[2024-01-24 03:08] LABS: ALANINE AMINOTRANSFERASE 53 U/L (12-78); ALBUMIN 2.1 G/DL (3.4-5.0); ALBUMIN/GLOBULIN RATIO 0.6 (1.1-1.5); ALKALINE PHOSPHATASE 272 IU/L (46-116); ANION GAP 8 (8-16); ASPARTATE AMINO TRANSFERASE 144 U/L (10-37); BILIRUBIN,TOTAL 2.3 MG/DL (0.1-1.0); BLOOD UREA NITROGEN 15 MG/DL (7-18); BUN/CREATININE RATIO 15.2 (10.0-20.0); CALCIUM 8.1 MG/DL (8.5-10.1); CHLORIDE 101 MMOL/L (99-107); CREATININE 0.99 MG/DL (0.60-1.10); GLUCOSE 126 MG/DL (70-104); MAGNESIUM 1.4 MG/DL (1.5-2.4); POTASSIUM 3.5 MMOL/L (3.5-5.1); SODIUM 139 MMOL/L (135-145); TOTAL CARBON DIOXIDE 29.9 MMOL/L (24-32); TOTAL PROTEIN 5.4 G/DL (6.4-8.2); eCRCL 50 ML/MIN; eGFR 74 ML/MIN
[2024-01-24 03:41] LABS: LYMPHOCYTES % (MANUAL) 7 % (21-51); NEUTROPHILS % (MANUAL) 93 % (42-75); PLATELET ESTIMATE DECREASED; TOTAL CELLS COUNTED 100
[2024-01-24 03:42] LABS: TARGET CELLS 1+
[2024-01-24] MEDS: pantoprazole 40mg Tablet.DR PO SCH ×2 (07:30→10:13)
[2024-01-24] MEDS ORDERED: non-formulary drug (Ubidecarenone (Co Q-10) 1 CAP) PO SCH (08:00)
[2024-01-24] MEDS: K and/or MAG REPLACEMENT MC SCH (08:00)
[2024-01-24] MEDS ORDERED: amLODIPine 5mg tablet PO SCH (08:00)
[2024-01-24] MEDS ORDERED: ROSUVASTATIN CALCIUM 5 MG TABLET PO SCH (08:00)
[2024-01-24] MEDS ORDERED: albuterol 2.5 MG/3 ML nebule NEB PRN (08:30)
[2024-01-24] MEDS: multivitamins, therapeutics tablet PO SCH (10:13)
[2024-01-24] MEDS: methylPREDNISolone sod succ/PF 40mg inj. IV SCH (10:14)
[2024-01-24] MEDS: apixaban 5mg tablet PO SCH (10:14)
[2024-01-24] MEDS: folic acid 1mg tablet PO SCH (10:14)
[2024-01-24] MEDS: furosemide 10 MG/1 ML 10ml inj IV SCH (10:15)
[2024-01-24] MEDS: ipratropium/albuterol 3ml nebule NEB PRN (10:23)
[2024-01-24 10:24] VITALS: PULSE 89; RESP 18; O2SAT 99
[2024-01-24 10:30] VITALS: PULSE 69; RESP 14
[2024-01-24] MEDS: losartan 50mg tablet PO SCH (10:39)
[2024-01-24 10:47] VITALS: BP 141/83; PULSE 74; RESP 16; TEMP 97.1; O2SAT 100
[2024-01-24] MEDS: CefTRIAXone/D5W-Rocephin 1gm 50 ML IV ONE (13:27)
[2024-01-24] MEDS: magnesium sulf-water 2g/50mL 50 ML IV PRN (14:36)
[2024-01-24 18:00] VITALS: BP 99/63; PULSE 74; RESP 16; TEMP 97.5; O2SAT 94
[2024-01-24] MEDS ORDERED: LORazepam 2 mg/ml vial IV PRN (18:10)
[2024-01-24] MEDS ORDERED: haloperidol 5mg tablet PO PRN (18:10)
[2024-01-24] MEDS ORDERED: haloperidol lactate 5mg/ml inj IM PRN (18:10)
[2024-01-24 22:00] VITALS: BP 127/76; PULSE 71; RESP 16; TEMP 97.7; O2SAT 97
[2024-01-25] MEDS: guaiFENesin ER 600mg tablet PO SCH (01:36)
[2024-01-25 06:15] LABS: BASOPHILS % (AUTO) 0.1 % (0-1); EOSINOPHILS % (AUTO) 0 % (0-6); HEMATOCRIT 30.1 % (42.0-52.0); HEMOGLOBIN 10.2 g/dl (14.0-17.9); LYMPHOCYTES # (AUTO) 0.4 X10'3 (1.1-4.8); LYMPHOCYTES % (AUTO) 7.3 % (21-51); MEAN CORPUSCULAR HEMOGLOBIN 36.7 PG (27.0-31.0); MEAN CORPUSCULAR VOLUME 108.2 FL (78-98); MEAN PLATELET VOLUME 9.9 FL (7.4-10.4); MONOCYTES # (AUTO) 0.2 X10'3 (0-0.9); MONOCYTES % (AUTO) 4.6 % (2-12); NEUTROPHILS # (AUTO) 4.8 X10'3 (1.8-7.7); PLATELET COUNT 132 X10'3 (140-440); RED BLOOD COUNT 2.79 X10'6 (4.70-6.10); RED CELL DISTRIBUTION WIDTH 15.8 % (11.5-14.5); WHITE BLOOD COUNT 5.4 X10'3 (4.5-11.0)
[2024-01-25 06:21] LABS: INR 1.2 INR; PROTHROMBIN TIME 12.1 SECONDS (9.0-12.0)
[2024-01-25 06:26] LABS: ALANINE AMINOTRANSFERASE 45 U/L (12-78); ALBUMIN/GLOBULIN RATIO 0.7 (1.1-1.5); ALKALINE PHOSPHATASE 243 IU/L (46-116); ANION GAP 2 (8-16); ASPARTATE AMINO TRANSFERASE 82 U/L (10-37); BILIRUBIN,TOTAL 1.3 MG/DL (0.1-1.0); BLOOD UREA NITROGEN 22 MG/DL (7-18); BUN/CREATININE RATIO 16.9 (10.0-20.0); CALCIUM 7.6 MG/DL (8.5-10.1); CHLORIDE 99 MMOL/L (99-107); GLUCOSE 127 MG/DL (70-104); LIPASE 30 U/L (16-77); MAGNESIUM 1.8 MG/DL (1.5-2.4); POTASSIUM 3.1 MMOL/L (3.5-5.1); SODIUM 134 MMOL/L (135-145); TOTAL CARBON DIOXIDE 32.6 MMOL/L (24-32); eCRCL 38 ML/MIN; eGFR 54 ML/MIN
[2024-01-25 07:00] VITALS: BP 120/69; PULSE 63; RESP 18; TEMP 97.7; O2SAT 99
[2024-01-25] MEDS: atorvastatin 20mg tablet PO SCH (07:29)
[2024-01-25] MEDS: potassium Cl 20 mEq SR tablet PO PRN (07:31)
[2024-01-25] MEDS: CefTRIAXone/D5W-Rocephin 1gm 50 ML IV SCH (07:38)
[2024-01-25 08:00] VITALS: RESP 18; O2SAT 99
[2024-01-25] MEDS ORDERED: multivitamins, therapeutics tablet PO SCH (08:00)
[2024-01-25 09:01] VITALS: PULSE 72; RESP 20; O2SAT 99
[2024-01-25 09:07] VITALS: PULSE 73; RESP 20
[2024-01-25 10:00] VITALS: BP 131/80; PULSE 64; RESP 18; TEMP 97.5; O2SAT 99
[2024-01-25] MEDS: FLU VACC TS2024-25(6MOS UP)/PF 45 MCG/0.5 ML SYRINGE IMVAC ONE (10:08)
[2024-01-25] MEDS ORDERED: IPRA3AMP9 NEB (10:47)
[2024-01-25] MEDS ORDERED: POTA-207 PO (10:47)
[2024-01-25] MEDS ORDERED: PRED20TA PO (10:47)
[2024-01-25] MEDS ORDERED: CEFD300C3 PO (10:47)
[2024-01-26] MEDS ORDERED: LORazepam 2 mg/ml vial IV PRN (18:10)
[2024-01-26] MEDS ORDERED: LORazepam 1 MG tablet PO PRN (18:10)
[2024-01-28] MEDS ORDERED: thiamine 100mg tablet PO SCH (08:00)
[2024-01-28] MEDS ORDERED: LORazepam 1 MG tablet PO PRN (18:10)
[2024-01-28] MEDS ORDERED: LORazepam 2 mg/ml vial IV PRN (18:10)
[2024-01-29] MEDS ORDERED: folic acid 1mg tablet PO SCH (08:00)
== END 2024-01-25 11:52 | disposition home or self-care (01) | DRG 291 ==
LOC: ER 17:33 → ED HOLD 22:18 → EDBEDREQ 01-24 06:06 → ORTHO 4S 01-24 08:22
PROVIDERS: ADMIT Internal Medicine Critical Care Medicine; ATTEND Family Medicine
DX: I11.0 Hypertensive heart disease with heart failure (principal); I50.33 Acute on chronic diastolic (congestive) heart failure; J44.1 Chronic obstructive pulmonary disease with (acute) exacerbation; I25.10 Atherosclerotic heart disease of native coronary artery without angina pectoris; F10.90 Alcohol use, unspecified, uncomplicated; F32.A Depression, unspecified; R74.01 Elevation of levels of liver transaminase levels; E78.00 Pure hypercholesterolemia, unspecified; I25.2 Old myocardial infarction; Z95.1 Presence of aortocoronary bypass graft; Z95.2 Presence of prosthetic heart valve; Z79.01 Long term (current) use of anticoagulants; Z79.899 Other long term (current) drug therapy; E87.6 Hypokalemia
CPT/HCPCS: 36415; 71045; 80053; 80320; 82140; 83690; 83735; 83880; 84100; 84484; 85007; 85025; 85610; 85730; 87081; 93005; 93308; 94640; 94760; 96374; 99285; A6258; G0378; J0696; J1940; J2919

== ENCOUNTER 2024-03-21 11:02 | Inpatient (IN) | payer OTHER, MEDICARE ==
[~2024-03-21] VITALS: Ht 177.8 cm; Wt 61.4 kg
[~2024-03-21 11:02] MED LIST changes: +CEFD300C3 PO; +FLUT16SP BOTHNARES; -LACT1CAP26 PO; -LACTC PO; +LORA10TA7 PO; +MAGN400C PO; -MECO10005 PO; +POTA-207 PO; +PRED20TA PO; -SERT25TA PO; -SUCR1TAB PO; -THIA50TA10 PO
[2024-03-21 11:32] LABS: BASOPHILS % (AUTO) 0.1 % (0-1); EOSINOPHILS % (AUTO) 0 % (0-6); HEMATOCRIT 40.5 % (42.0-52.0); HEMOGLOBIN 13.9 g/dl (14.0-17.9); LYMPHOCYTES # (AUTO) 0.6 X10'3 (1.1-4.8); LYMPHOCYTES % (AUTO) 2.7 % (21-51); MEAN CORPUSCULAR HEMOGLOBIN 36.5 PG (27.0-31.0); MEAN CORPUSCULAR HGB CONC 34.3 g/dL (33.0-36.5); MEAN CORPUSCULAR VOLUME 106.3 FL (78-98); MEAN PLATELET VOLUME 9.8 FL (7.4-10.4); MONOCYTES # (AUTO) 0.5 X10'3 (0-0.9); MONOCYTES % (AUTO) 2.1 % (2-12); NEUTROPHILS # (AUTO) 20.9 X10'3 (1.8-7.7); NEUTROPHILS % (AUTO) 95.1 % (42-75); PLATELET COUNT 155 X10'3 (140-440); RED BLOOD COUNT 3.81 X10'6 (4.70-6.10)
[2024-03-21 12:08] LABS: ALANINE AMINOTRANSFERASE 59 U/L (12-78); ALBUMIN 2.3 G/DL (3.4-5.0); ALBUMIN/GLOBULIN RATIO 0.6 (1.1-1.5); ALKALINE PHOSPHATASE 405 IU/L (46-116); ANION GAP 15 (8-16); ASPARTATE AMINO TRANSFERASE 257 U/L (10-37); BILIRUBIN,TOTAL 6.2 MG/DL (0.1-1.0); BLOOD UREA NITROGEN 10 MG/DL (7-18); BUN/CREATININE RATIO 6.2 (10.0-20.0); CHLORIDE 88 MMOL/L (99-107); CREATININE 1.61 MG/DL (0.60-1.10); GLUCOSE 115 MG/DL (70-104); PRO BRAIN NATRIURETIC PEPTIDE 3076 PG/ML (0-125); SODIUM 132 MMOL/L (135-145); TOTAL CARBON DIOXIDE 29.2 MMOL/L (24-32); TOTAL PROTEIN 5.9 G/DL (6.4-8.2); eCRCL 35 ML/MIN; eGFR 42 ML/MIN
[2024-03-21 12:15] LABS: POTASSIUM 2.9 MMOL/L (3.5-5.1)
[2024-03-21 13:09] LABS: INR 1.4 INR; PROTHROMBIN TIME 14.4 SECONDS (9.0-12.0)
[2024-03-21] MEDS: normal saline 1000ML IV soln IVB ONE (13:39)
[2024-03-21] MEDS ORDERED: magnesium sulf-water 2g/50mL 50 ML IV PRN (13:55)
[2024-03-21] MEDS ORDERED: magnesium sulf-water 4G/100mL 100 ML IV PRN (13:55)
[2024-03-21] MEDS ORDERED: HYDROcodone/acetaminophen 10/325mg tab PO PRN (14:45)
[2024-03-21] MEDS ORDERED: acetaminophen 325mg tablet PO PRN (14:45)
[2024-03-21] MEDS ORDERED: morphine 2 MG/ML inj. syringe IV PRN (14:45)
[2024-03-21] MEDS ORDERED: ondansetron/PF 4mg/2ml inj IV PRN (14:45)
[2024-03-21] MEDS ORDERED: mag hydrox/Alum hydrox/simeth 30ml oral suspension PO PRN (14:45)
[2024-03-21] MEDS ORDERED: HYDROcodone/acetaminophen 5mg/325mg tablet PO PRN (14:45)
[2024-03-21] MEDS ORDERED: magnesium hydroxide 30ml (MOM) UD suspension PO PRN (14:45)
[2024-03-21 15:24] LABS: LIPASE 271 U/L (16-77)
[2024-03-21] MEDS: potassium Cl 20mEq in NS 1,000 ML IV SCH (15:41)
[2024-03-21] MEDS ORDERED: LORazepam 2 mg/ml vial IV PRN (16:05)
[2024-03-21] MEDS ORDERED: haloperidol lactate 5mg/ml inj IM PRN (16:05)
[2024-03-21] MEDS ORDERED: LORazepam 1 MG tablet PO PRN (16:05)
[2024-03-21] MEDS ORDERED: haloperidol 5mg tablet PO PRN (16:05)
[2024-03-21] MEDS ORDERED: ipratropium/albuterol 3ml nebule NEB PRN (16:20)
[2024-03-21] MEDS: albumin (Human) 5% 250ml 250 ML IV ONE (17:25)
[2024-03-21 17:26] VITALS: PULSE 73; RESP 16; O2SAT 99
[2024-03-21] MEDS ORDERED: LIPASE/PROTEASE/AMYLASE 4,200 unit CAPSULE.DR PO SCH (17:30)
[2024-03-21] MEDS: piperacillin/tazo 4.5gm/100ml 100 ML IV SCH (17:49)
[2024-03-21 19:25] LABS: ETHANOL < 10 MG/DL (<10)
[2024-03-21 19:27] LABS: FERRITIN 3516 NG/ML (26-388)
[2024-03-21 20:00] LABS: % IRON SATURATION 50 % (11-46); IRON 35 UG/DL (53-167); TOTAL IRON BINDING CAPACITY 70 UG/DL (259-388)
[2024-03-21] MEDS: docusate sod 100mg capsule PO SCH (20:00)
[2024-03-21] MEDS: K and/or MAG REPLACEMENT MC SCH (20:00)
[2024-03-21] MEDS: potassium Cl 40MEQ/1/2NS 520ml 520 ML IV PRN (21:02)
[2024-03-21] MEDS: heparin, porcine 5000 units/ml vial SQ SCH (21:49)
[2024-03-21] MEDS ORDERED: POTA-188 PO (23:12)
[2024-03-21] MEDS ORDERED: ATR0.5NEB IH (23:12)
[2024-03-21] MEDS ORDERED: PRED20TA PO (23:12)
[2024-03-21] MEDS ORDERED: PRED10TA23 PO (23:12)
[2024-03-22] VITALS (8 sets, daily range): BP systolic 99–115; BP diastolic 59–73; PULSE 59–70; RESP 12–18; TEMP 97.3–97.9; O2SAT 93–100
[2024-03-22 04:23] LABS: BASOPHILS # (AUTO) 0.1 X10'3 (0-0.2); EOSINOPHILS % (AUTO) 0.1 % (0-6); HEMATOCRIT 30.9 % (42.0-52.0); HEMOGLOBIN 10.8 g/dl (14.0-17.9); LYMPHOCYTES # (AUTO) 0.8 X10'3 (1.1-4.8); LYMPHOCYTES % (AUTO) 8.8 % (21-51); MEAN CORPUSCULAR HEMOGLOBIN 36.7 PG (27.0-31.0); MEAN CORPUSCULAR HGB CONC 34.9 g/dL (33.0-36.5); MEAN CORPUSCULAR VOLUME 105.3 FL (78-98); MEAN PLATELET VOLUME 9.4 FL (7.4-10.4); MONOCYTES # (AUTO) 0.4 X10'3 (0-0.9); MONOCYTES % (AUTO) 4.8 % (2-12); NEUTROPHILS # (AUTO) 7.6 X10'3 (1.8-7.7); NEUTROPHILS % (AUTO) 85.3 % (42-75); PLATELET COUNT 86 X10'3 (140-440); RED BLOOD COUNT 2.94 X10'6 (4.70-6.10); WHITE BLOOD COUNT 8.9 X10'3 (4.5-11.0)
[2024-03-22 04:34] LABS: INR 1.6 INR; PROTHROMBIN TIME 15.8 SECONDS (9.0-12.0)
[2024-03-22 04:38] LABS: ALANINE AMINOTRANSFERASE 40 U/L (12-78); ALBUMIN 1.9 G/DL (3.4-5.0); ALBUMIN/GLOBULIN RATIO 0.7 (1.1-1.5); ALKALINE PHOSPHATASE 292 IU/L (46-116); AMYLASE 37 U/L (25-115); ANION GAP 8 (8-16); ASPARTATE AMINO TRANSFERASE 159 U/L (10-37); BLOOD UREA NITROGEN 11 MG/DL (7-18); BUN/CREATININE RATIO 7.1 (10.0-20.0); CHLORIDE 96 MMOL/L (99-107); CREATININE 1.54 MG/DL (0.60-1.10); GLUCOSE 91 MG/DL (70-104); LIPASE 20 U/L (16-77); PHOSPHORUS 1.8 MG/DL (2.3-4.5); SODIUM 135 MMOL/L (135-145); TOTAL CARBON DIOXIDE 31.1 MMOL/L (24-32); TOTAL PROTEIN 4.5 G/DL (6.4-8.2); eCRCL 37 ML/MIN; eGFR 45 ML/MIN
[2024-03-22 04:47] LABS: MAGNESIUM 1.2 MG/DL (1.5-2.4)
[2024-03-22 04:48] LABS: POTASSIUM 2.6 MMOL/L (3.5-5.1)
[2024-03-22] MEDS: LIPASE/PROTEASE/AMYLASE 4,200 unit CAPSULE.DR PO SCH (07:30)
[2024-03-22] MEDS: magnesium Cl slow-release 64mg tablet PO PRN (16:15)
[2024-03-22] MEDS: apixaban 5mg tablet PO SCH (20:56)
[2024-03-22] MEDS: thiamine 100mg tablet PO SCH (20:57)
[2024-03-22] MEDS: potassium Cl 20 mEq SR tablet PO PRN (21:10)
[2024-03-23 02:00] VITALS: BP 113/72; PULSE 60; RESP 17; TEMP 98.1; O2SAT 100
[2024-03-23 06:00] VITALS: BP 107/76; PULSE 60; RESP 17; TEMP 98.1
[2024-03-23 06:43] LABS: BASOPHILS % (AUTO) 0.4 % (0-1); EOSINOPHILS % (AUTO) 0.3 % (0-6); HEMATOCRIT 30.5 % (42.0-52.0); HEMOGLOBIN 10.5 g/dl (14.0-17.9); LYMPHOCYTES # (AUTO) 0.7 X10'3 (1.1-4.8); LYMPHOCYTES % (AUTO) 9.9 % (21-51); MEAN CORPUSCULAR HEMOGLOBIN 36.6 PG (27.0-31.0); MEAN CORPUSCULAR HGB CONC 34.5 g/dL (33.0-36.5); MEAN CORPUSCULAR VOLUME 106.1 FL (78-98); MEAN PLATELET VOLUME 10.1 FL (7.4-10.4); MONOCYTES # (AUTO) 0.3 X10'3 (0-0.9); MONOCYTES % (AUTO) 4.7 % (2-12); NEUTROPHILS # (AUTO) 6.1 X10'3 (1.8-7.7); NEUTROPHILS % (AUTO) 84.7 % (42-75); PLATELET COUNT 85 X10'3 (140-440); RED BLOOD COUNT 2.87 X10'6 (4.70-6.10); RED CELL DISTRIBUTION WIDTH 14.1 % (11.5-14.5); WHITE BLOOD COUNT 7.2 X10'3 (4.5-11.0)
[2024-03-23 07:02] LABS: INR 1.3 INR; PROTHROMBIN TIME 13.8 SECONDS (9.0-12.0)
[2024-03-23 07:24] LABS: ALANINE AMINOTRANSFERASE 40 U/L (12-78); ALBUMIN 1.6 G/DL (3.4-5.0); ALBUMIN/GLOBULIN RATIO 0.6 (1.1-1.5); ALKALINE PHOSPHATASE 258 IU/L (46-116); AMYLASE 29 U/L (25-115); ANION GAP 7 (8-16); ASPARTATE AMINO TRANSFERASE 145 U/L (10-37); BILIRUBIN,TOTAL 3.1 MG/DL (0.1-1.0); BLOOD UREA NITROGEN 10 MG/DL (7-18); BUN/CREATININE RATIO 9.2 (10.0-20.0); CHLORIDE 102 MMOL/L (99-107); CREATININE 1.09 MG/DL (0.60-1.10); GLUCOSE 78 MG/DL (70-104); LIPASE 48 U/L (16-77); MAGNESIUM 1.3 MG/DL (1.5-2.4); POTASSIUM 3.8 MMOL/L (3.5-5.1); SODIUM 135 MMOL/L (135-145); TOTAL CARBON DIOXIDE 25.8 MMOL/L (24-32); TOTAL PROTEIN 4.3 G/DL (6.4-8.2); eCRCL 52 ML/MIN; eGFR 66 ML/MIN
[2024-03-23 07:43] LABS: PHOSPHORUS 1.1 MG/DL (2.3-4.5)
[2024-03-23] MEDS ORDERED: folic acid 0.4mg tablet PO SCH (08:00)
[2024-03-23] MEDS ORDERED: MULTIVITAMINS PO SCH (08:00)
[2024-03-23] MEDS: multivitamins, therapeutics tablet PO SCH (08:11)
[2024-03-23] MEDS: furosemide 20MG tablet PO SCH (08:12)
[2024-03-23] MEDS: pantoprazole 40mg Tablet.DR PO SCH (08:12)
[2024-03-23] MEDS: losartan 25mg tablet PO SCH (08:13)
[2024-03-23] MEDS: folic acid 1mg tablet PO SCH (08:13)
[2024-03-23] MEDS: atorvastatin 20mg tablet PO SCH (08:14)
[2024-03-23] MEDS ORDERED: DEXTROSE 5% IV ONE (15:10)
[2024-03-23] MEDS ORDERED: WATER IV ONE (15:10)
[2024-03-23] MEDS ORDERED: SODIUM PHOSPHATE IV ONE (15:10)
[2024-03-23] MEDS: sodium phosphate inj. 30 MMOL in dextrose 5%-water 250 ML IV ONE (15:53)
[2024-03-23 16:15] VITALS: BP 121/77; PULSE 63; RESP 16; O2SAT 96
[2024-03-23] MEDS: loperamide 2mg capsule PO PRN (16:36)
[2024-03-23 18:00] VITALS: BP 124/81; PULSE 67; RESP 13; TEMP 97.6; O2SAT 96
[2024-03-23 19:40] VITALS: RESP 22; O2SAT 97
[2024-03-23 22:00] VITALS: BP 112/78; PULSE 63; RESP 19; TEMP 97.5; O2SAT 97
[2024-03-24 02:00] VITALS: BP 129/84; PULSE 64; RESP 18; TEMP 97.6; O2SAT 97
[2024-03-24 05:14] LABS: FOLATE SERUM(FOLIC) 6.2 ng/mL (>3.0)
[2024-03-24 06:00] VITALS: BP 131/76; PULSE 84; RESP 14; TEMP 97.6; O2SAT 96
[2024-03-24 07:53] LABS: BASOPHILS % (AUTO) 0.7 % (0-1); EOSINOPHILS # (AUTO) 0.1 X10'3 (0-0.9); EOSINOPHILS % (AUTO) 1.1 % (0-6); HEMATOCRIT 31.6 % (42.0-52.0); HEMOGLOBIN 10.7 g/dl (14.0-17.9); LYMPHOCYTES # (AUTO) 0.7 X10'3 (1.1-4.8); LYMPHOCYTES % (AUTO) 12.8 % (21-51); MEAN CORPUSCULAR HEMOGLOBIN 36.1 PG (27.0-31.0); MEAN CORPUSCULAR HGB CONC 33.7 g/dL (33.0-36.5); MEAN PLATELET VOLUME 10.2 FL (7.4-10.4); MONOCYTES # (AUTO) 0.3 X10'3 (0-0.9); MONOCYTES % (AUTO) 6.4 % (2-12); NEUTROPHILS # (AUTO) 4.3 X10'3 (1.8-7.7); PLATELET COUNT 92 X10'3 (140-440); RED BLOOD COUNT 2.95 X10'6 (4.70-6.10); RED CELL DISTRIBUTION WIDTH 14.1 % (11.5-14.5); WHITE BLOOD COUNT 5.4 X10'3 (4.5-11.0)
[2024-03-24 07:59] LABS: INR 1.4 INR; PROTHROMBIN TIME 13.9 SECONDS (9.0-12.0)
[2024-03-24 08:00] VITALS: RESP 14; O2SAT 96
[2024-03-24 08:21] LABS: ALANINE AMINOTRANSFERASE 37 U/L (12-78); ALBUMIN 1.5 G/DL (3.4-5.0); ALBUMIN/GLOBULIN RATIO 0.6 (1.1-1.5); ALKALINE PHOSPHATASE 236 IU/L (46-116); AMYLASE 36 U/L (25-115); ANION GAP 8 (8-16); ASPARTATE AMINO TRANSFERASE 130 U/L (10-37); BILIRUBIN,TOTAL 2.6 MG/DL (0.1-1.0); BLOOD UREA NITROGEN 10 MG/DL (7-18); BUN/CREATININE RATIO 9.9 (10.0-20.0); CALCIUM 6.8 MG/DL (8.5-10.1); CHLORIDE 102 MMOL/L (99-107); CREATININE 1.01 MG/DL (0.60-1.10); GLUCOSE 72 MG/DL (70-104); LIPASE 67 U/L (16-77); MAGNESIUM 1.3 MG/DL (1.5-2.4); PHOSPHORUS 2.4 MG/DL (2.3-4.5); SODIUM 136 MMOL/L (135-145); TOTAL CARBON DIOXIDE 25.9 MMOL/L (24-32); TOTAL PROTEIN 4.2 G/DL (6.4-8.2); eCRCL 57 ML/MIN; eGFR 72 ML/MIN
[2024-03-24 08:44] LABS: POTASSIUM 2.8 MMOL/L (3.5-5.1)
[2024-03-24 09:08] VITALS: BP_SYST 131
[2024-03-24] MEDS: potassium Cl 20 mEq SR tablet PO PRN (09:08)
== END 2024-03-24 14:59 | DRG 438 ==
LOC: ER 11:02 → ED HOLD 14:48 → PCU 3S 03-22 00:47
PROVIDERS: ADMIT Internal Medicine; ATTEND Internal Medicine
DX: K85.90 Acute pancreatitis without necrosis or infection, unspecified (principal); E43 Unspecified severe protein-calorie malnutrition; N17.0 Acute kidney failure with tubular necrosis; A09 Infectious gastroenteritis and colitis, unspecified; E87.20 Acidosis, unspecified; Z68.1 Body mass index [BMI] 19.9 or less, adult; E78.00 Pure hypercholesterolemia, unspecified; E87.6 Hypokalemia; I11.0 Hypertensive heart disease with heart failure; I50.9 Heart failure, unspecified; I25.10 Atherosclerotic heart disease of native coronary artery without angina pectoris; K86.1 Other chronic pancreatitis; E88.09 Other disorders of plasma-protein metabolism, not elsewhere classified; D53.9 Nutritional anemia, unspecified; Y90.9 Presence of alcohol in blood, level not specified; F10.20 Alcohol dependence, uncomplicated; J44.9 Chronic obstructive pulmonary disease, unspecified; Z87.891 Personal history of nicotine dependence; Z95.2 Presence of prosthetic heart valve; Z95.1 Presence of aortocoronary bypass graft; Z82.49 Family history of ischemic heart disease and other diseases of the circulatory system
CPT/HCPCS: 36415; 71045; 74176; 80053; 80320; 82150; 82607; 82728; 82746; 83540; 83550; 83605; 83690; 83735; 83880; 84100; 84132; 84145; 84484; 85025; 85610; 87045; 87046; 87324; 87449; 89055; 93005; 94760; 97110; 97116; 97161; 97530; 97535; 99285; A6212; A6250; A6258; A6590; G0378; J1644; J2543; J3480; J3490; J7030; J7040; J7060; P9045

== ENCOUNTER 2024-04-12 06:19 | Day surgery (SDC) | payer MEDICARE, OTHER ==
[2024-04-12] VITALS (12 sets, daily range): BP systolic 127–188; BP diastolic 71–94; PULSE 60–89; RESP 10–20; O2SAT 94–100
[~2024-04-12] VITALS: Ht 177.8 cm; Wt 65.9 kg
[~2024-04-12 06:19] MED LIST changes: +ATR0.5NEB IH; -CEFD300C3 PO; -IPRA3AMP9 NEB; +LIPA1CAP18 PO; -LORA10TA7 PO; +METO5TAB85 PO; +ONDA-243 PO; +PANT40VI2 IV; +POTA-188 PO; -POTA-207 PO; +PRED10TA23 PO; +SERT-433 PO
[2024-04-12] MEDS ORDERED: LIDOcaine 2% Viscous 15ml cup ONE (07:04)
[2024-04-12] MEDS ORDERED: fentaNYL/PF 50MCG/1 ML 2ML syringe ONE (08:17)
[2024-04-12] MEDS ORDERED: MIDAZolam 1 MG/ML 5ML VIAL ONE (08:17)
[2024-04-12] MEDS ORDERED: diphenhydrAMINE 50 mg/ml inj ONE (08:24)
== END 2024-04-12 09:55 | disposition home or self-care (01) ==
LOC: GI LAB 06:19
PROVIDERS: ATTEND Internal Medicine Gastroenterology
DX: R10.13 Epigastric pain (principal); K31.89 Other diseases of stomach and duodenum; D50.0 Iron deficiency anemia secondary to blood loss (chronic); R11.2 Nausea with vomiting, unspecified; Z79.899 Other long term (current) drug therapy
CPT/HCPCS: 43239; A4620; J1200; J2250; J3010; J7030; Z7512; 88305; 99152